=== PATIENT | male | born 1975 | race Caucasian/White ===

== ENCOUNTER 2021-03-06 18:47 | Inpatient (IN) | payer MEDICAID, OTHER, SELFPAY ==
[2021-03-06 19:42] VITALS: BP 141/108; PULSE 116; RESP 18; TEMP 36.9; O2SAT 97
[2021-03-06 20:37] VITALS: BMI 32.9
[2021-03-06] MEDS: Omeprazole 20 MG CAPSULE.DR PO (21:16)
[2021-03-06] MEDS: hydrOXYzine HCL 25 MG TABLET PO (22:29)
[2021-03-06] MEDS: Melatonin 3 MG TABLET PO ×2 (22:29)
[2021-03-07] MEDS: traZODone HCL 50 MG TABLET PO (03:48)
[2021-03-07] MEDS: hydrOXYzine HCL 25 MG TABLET PO (03:48)
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
[2021-03-07 06:00] VITALS: BP 138/84; PULSE 94; RESP 20; TEMP 36.3; O2SAT 98
[2021-03-07] MEDS: Omeprazole 20 MG CAPSULE.DR PO (09:11)
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
[2021-03-07 18:00] VITALS: BP 120/65; PULSE 80
[2021-03-07] MEDS: diphenhydrAMINE HCL 25 MG TABLET 50 MG PO (19:28)
[2021-03-08] MEDS: diphenhydrAMINE HCL 25 MG TABLET 50 MG PO ×2 (00:37→20:47)
[2021-03-08] MEDS: traZODone HCL 50 MG TABLET PO ×3 (01:32→20:47)
[2021-03-08] MEDS: Acetaminophen 325 MG TABLET 650 MG PO (02:05)
[2021-03-08] MEDS: Melatonin 3 MG TABLET 6 MG PO ×2 (02:05→22:17)
[2021-03-08 06:00] VITALS: BP 141/93; PULSE 104; RESP 20; TEMP 36.4; O2SAT 98
[2021-03-08] MEDS: Omeprazole 20 MG CAPSULE.DR PO (08:26)
[2021-03-08 18:00] VITALS: BP 159/89; PULSE 104; RESP 22; TEMP 36.6; O2SAT 98
--- NOTE | 2021-03-08 20:24 | P.PNPSI_ITS ---
Subjective Subjective Date of Service: 03/08/21 Reason For Visit: Unspecified Schizophrenia Subjective Notes: 3 Day Medical Problems Affecting Mental Status: No Interim History: Mikel was pressured, intrusive and bizarre. He refused to take any medications. He could be re-directed by staff Medication Compliance: No Attending Groups: No Review of Systems Acute medical concerns: No Medical Review of Systems: unchanged Mental Status Exam Mental Status Exam Narrative: Pt is alert and oriented to person place and time but not situation. Behavior is guarded and suspicious but can also be somewhat cooperative and he is looking to engage; patient is appropriately dressed with adequate hygiene; patient is in emotional distress sometimes intensely angry, sometimes crying at his situation; mood is described as angry and irritable;and affect intense, angry, with intermittently glaring eye contact; Speech is pressured and he is difficult to interrupt, talking at louder than normal volume; psychomotor agitation present and patient is pacing the room while talking; thought process can goal directed but is overall disorganized, with mixing of unrelated ideas and saying things that don't make sense; Thought content is with paranoid, delusional thoughts with some grandiosity; denies any SI/HI. There is no evidence of perceptual disturbance. ?Patients insight and judgment impaired. Diagnostics Vital Signs (24Hr): Vital Signs - 24 hr 03/08/21 06:00 03/08/21 18:00 Temperature 97.5 F 98 F Pulse Rate 104 H 104 H Respiratory Rate 20 22 H Blood Pressure 141/93 H 159/89 H Pulse Oximetry 98 98 Body Mass Index 32.9 Medications Medications Current Medications Acetaminophen (Acetaminophen 325 Mg Tablet) 650 mg PO Q6H PRN PRN Reason: Headache/Pain Mild Scale (1-3) Last Admin: 03/08/21 02:05 Dose: 650 mg Documented by: Al Hydroxide/Mg Hydroxide (Magnesium Hydrox/Alum Hydrox 30 Ml Oral.Susp) 30 ml PO Q6H PRN PRN Reason: Heartburn/Nausea Diphenhydramine HCl (Diphenhydramine Hcl 25 Mg Tablet) 50 mg PO BEDTIME LAZARO Last Admin: 03/08/21 00:37 Dose: 50 mg Documented by: Diphenhydramine HCl (Diphenhydramine Hcl 25 Mg Tablet) 50 mg PO Q4H PRN PRN Reason: agitation Last Admin: 03/07/21 19:28 Dose: 50 mg Documented by: Divalproex Sodium (Divalproex Sodium Er 250 Mg Tab.Er.24h) 750 mg PO BEDTIME [facility] Last Admin: 03/07/21 19:20 Dose: Not Given Documented by: Haloperidol (Haloperidol 5 Mg Tablet) 5 mg PO Q4H PRN PRN Reason: agitation Lorazepam (Lorazepam 1 Mg Tablet) 2 mg PO Q4H PRN PRN Reason: agitation Magnesium Hydroxide (Milk Of Magnesia 30 Ml Oral.Susp) 30 ml PO DAILY PRN PRN Reason: Constipation Melatonin (Melatonin 3 Mg Tablet) 6 mg PO BEDTIME PRN PRN Reason: Sleep Last Admin: 03/08/21 02:05 Dose: 6 mg Documented by: Omeprazole (Omeprazole 20 Mg Capsule.Dr) 20 mg PO DAILY MRX1 [facility] Last Admin: 03/08/21 12:22 Dose: Not Given Documented by: Trazodone HCl (Trazodone Hcl 50 Mg Tablet) 50 mg PO BEDTIME PRN PRN Reason: Insomnia Last Admin: 03/08/21 03:05 Dose: 50 mg Documented by: Allergies Allergies Allergy/AdvReac Type Severity Reaction Status Date / Time No Known Allergies Allergy Verified 03/06/21 20:38 Assessment & Plan Assessment & Plan (1) Bipolar 1 disorder: Status: Acute Code(s): F31.9 - Bipolar disorder, unspecified Assessment and Plan: IMPRESSION: It is a he 45-year-old male with diagnosis of bipolar disorder, recently discharged from [facility] (following 20 days on a another inpatient unit in [place], possibly forensic) presents with continued manic, paranoid, disorganized speech and behavior. Patient presents as manic and with pressured speech, disorganized, paranoid thinking and with some grandiosity. Patient has no insight and does not want medications. He is insisting on being discharged and will Renetta the hospital staff otherwise. Patient is frequently intents and presents as angry and somewhat menacing when he starts talking. pLAN: Patient signed a CV; then signed 3 day notice Q 15 minutes checks for safety Patient asks for melatonin 6 mg and Benadryl 50 mg at bedtime which has been ordered Patient refuses other medication Historical Interpreter added Depakote XL 750 mg at bedtime since patient says he is having trouble sleeping and may change his mind about medications Will have to get collateral information Patient refused labs 03/08/21: No changes Encourage medication compliance I spent ___10___ minutes with the patient and/or on the patient floor today, greater than?50% of which was spent counseling/coordinating care. Patient educated on: diagnosis Informed Consent: does not understand Reason for contiued inpatient stay Substantial Risk for: rapid decompensation
[2021-03-08] MEDS: HaloperidoL 5 MG TABLET PO (22:17)
[2021-03-09] MEDS: traZODone HCL 50 MG TABLET PO (03:46)
[2021-03-09] MEDS: Melatonin 3 MG TABLET 6 MG PO ×2 (03:46→20:08)
[2021-03-09] MEDS: Milk of Magnesia 30 ML ORAL.SUSP PO (04:40)
[2021-03-09 06:00] VITALS: BP 144/87; PULSE 97; RESP 16; TEMP 36.4; O2SAT 97
[2021-03-09] MEDS: Omeprazole 20 MG CAPSULE.DR PO (08:38)
[2021-03-09 17:00] VITALS: BP 136/97; PULSE 96; RESP 18; TEMP 36.6; O2SAT 98
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
[2021-03-09] MEDS: diphenhydrAMINE HCL 25 MG TABLET 50 MG PO (21:17)
[2021-03-10] MEDS: Melatonin 3 MG TABLET 6 MG PO ×2 (01:00→22:21)
[2021-03-10] MEDS: traZODone HCL 50 MG TABLET PO (03:51)
[2021-03-10 06:28] VITALS: BP 139/87; PULSE 101; TEMP 36.4; O2SAT 98
[2021-03-10] MEDS: Omeprazole 20 MG CAPSULE.DR PO (08:01)
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
[2021-03-10 18:00] VITALS: BP 153/95; PULSE 106; TEMP 36.6; O2SAT 98
[2021-03-10] MEDS: diphenhydrAMINE HCL 25 MG TABLET 50 MG PO (22:15)
[2021-03-11] MEDS: Acetaminophen 325 MG TABLET 650 MG PO (00:45)
[2021-03-11] MEDS: HaloperidoL 5 MG TABLET PO (01:07)
[2021-03-11] MEDS: LORazepam 1 MG TABLET 2 MG PO (01:08)
[2021-03-11 06:00] VITALS: BP 170/94; PULSE 111; RESP 18; TEMP 36; O2SAT 98
[2021-03-11] MEDS: Omeprazole 20 MG CAPSULE.DR PO (08:36)
[2021-03-11 09:02] VITALS: BP 147/85; PULSE 99
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
[2021-03-11 16:45] VITALS: BP 143/90; PULSE 101; TEMP 36.5
[2021-03-11] MEDS: Valproic Acid 250 MG CAPSULE 500 MG PO (20:26)
[2021-03-11] MEDS: Melatonin 3 MG TABLET 6 MG PO (22:43)
[2021-03-12] MEDS: diphenhydrAMINE HCL 25 MG TABLET 50 MG PO (04:33)
[2021-03-12 06:00] VITALS: BP 130/82; PULSE 84; TEMP 36.3; O2SAT 99
[2021-03-12] MEDS: Omeprazole 20 MG CAPSULE.DR PO (09:05)
--- NOTE | 2021-03-12 10:15 | P.CONIM_ITS ---
History of Present Illness Data of Consult Service Date: 03/12/21 Primary Care Provider: Quang Fuentes MD HPI Reason for consult: Routine Medical Consult This is a 45 yo M who is admitted to the inpatient psych unit. Medical consult requested for routine medical H&P. Patient is seen and examined in his room. He requires frequent redirection to obtain history. He reports no chronic health problems. He reports he used to drink 8-10 beers daily, but has not for >6 months He reports he used to smoke 1 PPD but stopped in 2005 He reports he vapes marijuana occasionally. He reports he has a history of acid reflux PMH GERD PSH Appendectomy EGD Mental health in his brother reports his father has health problems, but then states He's just old Social History Previous smoker Heavy Etoh use -- stopped 6 months ago Vapes marijuana Review of Systems Review of Systems: no chest pain no sob no abd pain PMFSH Medical History (Updated 03/12/21 @ 10:32 by Hussain Meehan MD) Bipolar 1 disorder Pertinent family history: . Social History Household Members: Spouse and Children Housing: House Do you presently have visiting nurse or other home services: No Patient Tobacco Use Status: Former Tobacco user Tobacco use type: Cigarette Smoked in Last 30 Days: No Patient Interested in Nicotine Replacement: No Patient Given Instructions on How to Stop Smoking: No Second Hand Smoke Exposure: No Use of substances other than those prescribed or required for medical reasons: Yes Substance Use Type: Marijuana Substance Use Frequency: Daily Currently Displaying Signs/Symptoms of Drug Intoxication Withdrawal: No Any prior treatment program specific to substance use: No Have you been hit, kicked, punched, or otherwise hurt by someone within the past year? If so, by whom?: No Do you feel safe in your current relationship?: No Is there a partner from a previous relationship who is making you feel unsafe now?: No Are you made to feel afraid or neglected: No Advance Directives: No Advance Directives Information Provided: No Advance Directives on File: No Do you have thoughts of harming others: None Do you have a plan to hurt others: No Plan Recently lost weight without trying: No Eating poorly because of decreased appetite: No Nutrition Risks: No Nutritional Risk Poor oral hygiene: No service: No Sexual orientation: Straight/Heterosexual Meds Allergies Allergy/AdvReac Type Severity Reaction Status Date / Time No Known Allergies Allergy Verified 03/06/21 20:38 Active Medications: Current Medications Acetaminophen (Acetaminophen 325 Mg Tablet) 650 mg PO Q6H PRN PRN Reason: Headache/Pain Mild Scale (1-3) Last Admin: 03/11/21 00:45 Dose: 650 mg Documented by: Al Hydroxide/Mg Hydroxide (Magnesium Hydrox/Alum Hydrox 30 Ml Oral.Susp) 30 ml PO Q6H PRN PRN Reason: Heartburn/Nausea Diphenhydramine HCl (Diphenhydramine Hcl 25 Mg Tablet) 50 mg PO BEDTIME [facility] Last Admin: 03/12/21 04:33 Dose: 50 mg Documented by: Diphenhydramine HCl (Diphenhydramine Hcl 25 Mg Tablet) 50 mg PO Q4H PRN PRN Reason: agitation Last Admin: 03/07/21 19:28 Dose: 50 mg Documented by: Haloperidol (Haloperidol 5 Mg Tablet) 5 mg PO Q4H PRN PRN Reason: agitation Last Admin: 03/11/21 01:07 Dose: 5 mg Documented by: Lorazepam (Lorazepam 1 Mg Tablet) 2 mg PO Q4H PRN PRN Reason: agitation Last Admin: 03/11/21 01:08 Dose: 2 mg Documented by: Magnesium Hydroxide (Milk Of Magnesia 30 Ml Oral.Susp) 30 ml PO DAILY PRN PRN Reason: Constipation Last Admin: 03/09/21 04:40 Dose: 30 ml Documented by: Melatonin (Melatonin 3 Mg Tablet) 6 mg PO BEDTIME PRN PRN Reason: Sleep Last Admin: 03/11/21 22:43 Dose: 6 mg Documented by: Omeprazole (Omeprazole 20 Mg Capsule.) 20 mg PO DAILY MRX1 [facility] Last Admin: 03/12/21 09:05 Dose: 20 mg Documented by: Trazodone HCl (Trazodone Hcl 50 Mg Tablet) 50 mg PO BEDTIME PRN PRN Reason: Insomnia Last Admin: 03/10/21 03:51 Dose: 50 mg Documented by: Valproic Acid (Valproic Acid 250 Mg Capsule) 500 mg PO BEDTIME [facility] Last Admin: 03/11/21 20:26 Dose: 500 mg Documented by: Home Medications Medication Instructions Recorded Confirmed Last Taken Type lamotrigine 25 mg tablet 25 mg PO DAILY 03/06/21 03/06/21 Unknown History melatonin 5 mg tablet 5 mg PO BEDTIME 03/06/21 03/06/21 Unknown History olanzapine 15 mg tablet 15 mg PO BEDTIME 03/06/21 03/06/21 Unknown History omeprazole 20 mg tablet,delayed 20 mg PO DAILY 03/06/21 03/06/21 Unknown History release Physical Exam Vital Signs and Narrative: Vital Signs: Last Vital Signs Temp 97.3 F 03/12/21 06:00 Pulse 84 03/12/21 06:00 Resp 18 03/11/21 06:00 BP 130/82 03/12/21 06:00 Pulse Ox 99 03/12/21 06:00 Body Mass Index 32.9 Const: Other: General - no acute distress, appears comfortable Cardiovascular - regular rate and rhythm, S1-S2 Lungs - normal respiratory effort, clear to auscultation bilaterally, no wheezing Abdomen - soft, nontender, no rebound or guarding Extremities - no edema bilaterally Neuro - awake and alert, no focal deficits; CN 2-12 intact bilaterally Assessment and Plan (1) Routine medical exam: Status: Acute Medical consultation sought for routine medical H&P. Patient has no active nor any major chronic medical issues. Patient has been counseled on age appropriate health maintenance as an outpatient. Continue care per primary team. Please re-consult if any issues arise.
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
[2021-03-12 19:23] VITALS: BP 137/91; PULSE 114; RESP 22; TEMP 36; O2SAT 98
[2021-03-12] MEDS: Divalproex Sodium ER 250 MG TAB.ER.24H 750 MG PO (20:39)
[2021-03-12] MEDS: Melatonin 3 MG TABLET 6 MG PO (21:10)
[2021-03-12] MEDS: Acetaminophen 325 MG TABLET 650 MG PO (23:37)
[2021-03-13] MEDS: HaloperidoL 5 MG TABLET PO (03:03)
[2021-03-13] MEDS: diphenhydrAMINE HCL 25 MG TABLET 50 MG PO ×2 (03:03→20:48)
[2021-03-13 06:00] VITALS: BP 164/94; PULSE 107; TEMP 36.6; O2SAT 99
[2021-03-13] MEDS: Omeprazole 20 MG CAPSULE.DR PO (07:46)
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
[2021-03-13 15:58] LABS: Appearance Urine CLEAR; Color Urine STRAW; Glucose Urine UA NEG (NEG); Leukocyte Esterase Urine NEG (NEG); Nitrite Urine NEG (NEG); Specific Gravity - Urine <= 1.005 (1.005-1.025); Urine Blood NEG (NEG); Urine Ketones NEG (NEG); Urine Protein NEG (NEG-TRACE)
[2021-03-13 16:08] LABS: RBC Urine 0 /HPF (0); WBC Urine 0 /HPF (0-4)
[2021-03-13 17:59] LABS: Alanine Aminotransferase 38 U/L (0-40); Albumin Level 4.4 g/dL (3.5-5.0); Alkaline Phosphatase 85 U/L (39-117); Anion Gap 12 (12-20); Aspartate Amino Transferase 27 U/L (5-37); Bilirubin Direct 0.2 mg/dL (0.0-0.5); Bilirubin Total 0.3 mg/dL (0.0-1.0); Blood Urea Nitrogen 11 mg/dL (9-16); Carbon Dioxide 29 mmol/L (22-29); Chloride 102 mmol/L (96-108); Creatinine Clr Calc Pharmacy 127.1; Estimated Glomerular Filt Rate > 60; Sodium 139 mmol/L (135-145); Total Protein 7.2 g/dL (6.5-8.0)
[2021-03-13 18:00] VITALS: BP 136/91; PULSE 78; TEMP 36.9
[2021-03-13] MEDS: Divalproex Sodium ER 500 MG TAB.ER.24H 1500 MG PO (19:06)
[2021-03-14] MEDS: Melatonin 3 MG TABLET 6 MG PO (00:32)
[2021-03-14] MEDS: diphenhydrAMINE HCL 25 MG TABLET 50 MG PO (00:32)
[2021-03-14 04:55] VITALS: BP 183/99; PULSE 89; TEMP 36.1; O2SAT 100
[2021-03-14] MEDS: Omeprazole 20 MG CAPSULE.DR PO (08:48)
[2021-03-14] MEDS: LORazepam 2 MG/ML VIAL IM (12:43)
[2021-03-14] MEDS: Haloperidol Lactate 5 MG/ML VIAL 10 MG IM (12:43)
[2021-03-14] MEDS: diphenhydrAMINE HCL 50 MG/ML VIAL 100 MG IM (12:43)
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
--- NOTE | 2021-03-14 12:52 | HO.PSYCHPN ---
Subjective Subjective Date of Service: 03/14/21 Reason For Visit: Unspecified Schizophrenia Interim History: Patient showed fiction and nonfiction prose writer his bathroom where another miracle occurred this time the toilet paper dispenser had been pulled off the wall. Patient later showed fiction and nonfiction prose writer where he hid the plastic locking device for the dispenser-screw which was underneath his toilet which he gave to fiction and nonfiction prose writer. Patient then demanded to be discharged today. He repeatedly told fiction and nonfiction prose writer with escalating intensity, menacing affect, loud voice that he is becoming Wrath and becoming the anti Hollis. He said you are making me Wrath... You are making me the anti Hollis... You want me to be Wrath and when you I will see you in the after life... You will be sent to me in a furnace... LEVITICUS...LEVITICUS...LEVITICUS... Patient made other consulting and threatening comments, calling Water Purification Chemist various names. Later patient started trying to kick the door down to exit the unit. He was not able to be verbally redirected and security had to be called, patient needing medication restraint. Mental Status Exam Mental Status Exam Narrative: Pt is alert and oriented to person place and time but not situation.? Behavior is somewhat angry, intense;? patient is appropriately dressed with adequate hygiene; patient is in emotional distress; mood is described as angry and affect intense; glaring eye contact; Speech is pressured and he is difficult to interrupt, talking at louder than normal volume;? psychomotor agitation present; thought process is goal oriented (wanting to be discharged today) but is also tangential and disorganized; Thought content on discharge and paranoid, delusional thinking, mixed of unrelated ideas and saying things that don't make sense; grandiose thoughts; denies any SI/HI. There is no evidence of perceptual disturbance. ?Patients insight and judgment impaired. Diagnostics Vital Signs (24Hr): Vital Signs - 24 hr 03/13/21 18:00 03/14/21 04:55 Temperature 98.4 F 97.0 F Pulse Rate 78 89 Blood Pressure 136/91 H 183/99 H Pulse Oximetry 100 Body Mass Index 32.9 Labs Results: 03/13/21 17:24 Labs: Laboratory Results - last 48 hr 03/13/21 03/13/21 15:43 17:24 Sodium 139 Potassium 4.0 Chloride 102 Carbon Dioxide 29 Anion Gap 12 BUN 11 Creatinine 0.79 Estim Creat Clear Calc 127.1 Estimated GFR > 60 Total Bilirubin 0.3 Direct Bilirubin 0.2 AST 27 ALT 38 Alkaline Phosphatase 85 Total Protein 7.2 Albumin 4.4 Urine Color STRAW Urine Appearance CLEAR Urine pH 7.0 Ur Specific Donner <= 1.005 Urine Protein NEG Urine Glucose (UA) NEG Urine Ketones NEG Urine Blood NEG Urine Nitrite NEG Ur Leukocyte Esterase NEG Urine RBC 0 Urine WBC 0 Ur Squamous Epith Cells NONE Urine Bacteria NONE Medications Medications Current Medications Acetaminophen (Acetaminophen 325 Mg Tablet) 650 mg PO Q6H PRN PRN Reason: Headache/Pain Mild Scale (1-3) Last Admin: 03/12/21 23:37 Dose: 650 mg Documented by: Al Hydroxide/Mg Hydroxide (Magnesium Hydrox/Alum Hydrox 30 Ml Oral.Susp) 30 ml PO Q6H PRN PRN Reason: Heartburn/Nausea Diphenhydramine HCl (Diphenhydramine Hcl 25 Mg Tablet) 50 mg PO BEDTIME LAZARO Last Admin: 03/14/21 00:32 Dose: 50 mg Documented by: Diphenhydramine HCl (Diphenhydramine Hcl 25 Mg Tablet) 50 mg PO Q4H PRN PRN Reason: agitation Last Admin: 03/13/21 03:03 Dose: 50 mg Documented by: Diphenhydramine HCl (Diphenhydramine Hcl 25 Mg Tablet) 25 mg PO BEDTIME MRX1 PRN PRN Reason: Insomnia Divalproex Sodium (Divalproex Sodium Er 500 Mg Tab.Er.24h) 1,500 mg PO BEDTIME LAZARO Last Admin: 03/13/21 19:06 Dose: 1,500 mg Documented by: Divalproex Sodium (Divalproex Sodium Er 250 Mg Tab.Er.24h) 250 mg PO DAILY LAZARO Last Admin: 03/14/21 08:50 Dose: Not Given Documented by: Haloperidol (Haloperidol 5 Mg Tablet) 5 mg PO Q4H PRN PRN Reason: agitation Last Admin: 03/13/21 03:03 Dose: 5 mg Documented by: Magnesium Hydroxide (Milk Of Magnesia 30 Ml Oral.Susp) 30 ml PO DAILY PRN PRN Reason: Constipation Last Admin: 03/09/21 04:40 Dose: 30 ml Documented by: Melatonin (Melatonin 3 Mg Tablet) 6 mg PO BEDTIME PRN PRN Reason: Sleep Last Admin: 03/14/21 00:32 Dose: 6 mg Documented by: Omeprazole (Omeprazole 20 Mg Norbert.) 20 mg PO DAILY MRX1 LAZARO Last Admin: 03/14/21 08:56 Dose: Not Given Documented by: Trazodone HCl (Trazodone Hcl 50 Mg Tablet) 50 mg PO BEDTIME PRN PRN Reason: Insomnia Last Admin: 03/10/21 03:51 Dose: 50 mg Documented by: Allergies Allergies Allergy/AdvReac Type Severity Reaction Status Date / Time No Known Allergies Allergy Verified 03/06/21 20:38 Assessment & Plan Assessment & Plan (1) Routine medical exam: Status: Acute Code(s): Z00.00 - Encounter for general adult medical examination without abnormal findings Assessment and Plan: IMPRESSION: It is a he 45-year-old male with diagnosis of bipolar disorder, recently discharged from [facility] (following 20 days on a another inpatient unit in [place], possibly forensic) presents with? continued manic, paranoid, disorganized speech and behavior.? Patient presents as manic and with pressured speech, disorganized, paranoid thinking and with some grandiosity. Patient has no insight and does not want medications.? He is insisting on being discharged and will Renetta the hospital staff otherwise. Patient is frequently intents and presents as angry and somewhat menacing when he starts talking. -patient remains manic, not sleeping, with pressured speech and paranoid delusional thoughts; patient lacks all insight -03/13patient pulled the mirror off the wall in his bathroom and later ripped the soap dispenser off the wall in his bathroom.? Both times he said it was a miracle that they just fell off. Continues to have present with manic symptoms, pressured speech, paranoid delusions, disorganized thinking, no insight demanding to be discharged today.? Patient can become intense, glaring and making vague threats sometimes litigious threats but other times ones that sound physical, though he later recants -03/14 patient angry, with menacing stare, posturing, threatening biblical destruction, insulting staff and threatening staff... Patient destroyed bathroom toilet paper dispenser by breaking off the wall. Later he tried to kick the exit door to the unit open, could not be verbally redirected and security needed to be called, patient medically restrained pLAN: [address] for involuntary commitment and substituted judgment Q 15 minutes checks for safety INCREASE to Depakote XL 1500mg qhs ADD Depakote XL 250mg in AM; Patient asks for melatonin 6 mg and Benadryl 50 mg at bedtime which has been ordered Patient refuses other medication Will have to get collateral information Patient refused labs I spent minutes with the patient and/or on the patient floor today, greater than?50% of which was spent counseling/coordinating care. Reason for contiued inpatient stay Substantial Risk for: inability to function
--- NOTE | 2021-03-14 12:59 | PC.NURSE ---
PT HAS BEEN AGITATED, ESCALATING, STATING THAT HE WAS GOING TO BREAK THROUGH THE DOOR BY THE END OF THE DAY . PT CONTINUED TO GO BACK TO THE DOOR MULTIPLE TIMES. HE BEGAN PULLING ON THE DOOR. PT THEN WENT TO THE DOOR AND BEGAN AGGRESSIVELY KICKING THE DOOR TO TRY TO OPEN IT. PT WAS SWEARING AT THE STAFF THREATENING THAT THEY BETTER LET HIM OUT OF THE HOSPITAL. PT RECEIVED AN IM AT 1240 WITHT HE ASSISTANCE OF SECURITY. PT TOOK THE IM WITHOUT FIGHTING STAFF.
--- NOTE | 2021-03-14 14:51 | PC.NURSE ---
RESPIRATIONS CHECKED AT 1445. RESPIRATIONS 16 PER MINUTE. HEAD IS ELEVATED ON BED WITH PILLOWS.
--- NOTE | 2021-03-14 15:30 | PC.NURSE ---
respirations rechecked due to im injection at 1530. resp 18 per minute. patients breathing is even and appears nonlabored.
[2021-03-14 18:00] VITALS: BP 160/92; PULSE 119; TEMP 36.6
[2021-03-15] MEDS: Melatonin 3 MG TABLET 6 MG PO (02:22)
[2021-03-15] MEDS: Omeprazole 20 MG CAPSULE.DR PO (09:05)
--- NOTE | 2021-03-15 09:36 | P.PNPSI_ITS ---
Subjective Subjective Date of Service: 03/15/21 Reason For Visit: Unspecified Schizophrenia Interim History: 03/14:Patient showed engineering writer his bathroom where a miracle occurred and the toilet paper dispenser had been ripped off the wall. Patient later showed engineering writer where he hid the plastic locking device for the screw underneath his toilet which he surrendered. Patient then demanded to be discharged today. He told engineering writer that he is becoming Wrath and becoming the anti Hollis. He said you are making me Wrath... You are making me the anti Hollis... You want me to be Wrath and when you I will see you in the after life... You will be sent to me in a furnace... LEVITICUS. ..LEVITICUS...LEVITICUS... Patient made other consulting and threatening comments, calling Neurodiagnostic Technician various names. Later patient started trying to kick the door down to exit the unit. He was not able to be verbally redirected and security had to be called, patient needing medication restraint. 03/15: Remains elevated, labile. Various criticisms towards Dr Juarez, Denies he ripped off toliet fixtures they just fell off...infrastructure is crumbling . Demanding DC soon. will visit today so i will take my meds . Review of Systems Review of Systems no chest pain no sob no abd pain Mental Status Exam Mental Status Exam Narrative: :?Pt is alert and oriented to person place and time but not situation.? Behavior is somewhat irritable, perseverating paranoid, delusional ideas;? patient is appropriately dressed with adequate hygiene; patient is in emotional distress sometimes intensely angry, sometimes crying at his situation; mood is described as angry and irritable;and affect intense, angry, with intermittently glaring eye contact; Speech is pressured and he is difficult to interrupt, talking at louder than normal volume;? psychomotor agitation present at times, and patient is pacing the room while talking; thought process can goal (wanting to be discharged today) directed but is overall disorganized, with mixing of unrelated ideas and saying things that don't make sense; Thought content is with paranoid, delusional thoughts with some grandiosity; denies any SI/HI. There is no evidence of perceptual disturbance. ?Patients insight and judgment impaired. Diagnostics Vital Signs (24Hr): Vital Signs - 24 hr 03/14/21 18:00 Temperature 98 F Pulse Rate 119 H Blood Pressure 160/92 H Body Mass Index 32.9 Labs Results: 03/13/21 17:24 Labs: Laboratory Results - last 48 hr 03/13/21 03/13/21 15:43 17:24 Sodium 139 Potassium 4.0 Chloride 102 Carbon Dioxide 29 Anion Gap 12 BUN 11 Creatinine 0.79 Estim Creat Clear Calc 127.1 Estimated GFR > 60 Total Bilirubin 0.3 Direct Bilirubin 0.2 AST 27 ALT 38 Alkaline Phosphatase 85 Total Protein 7.2 Albumin 4.4 Urine Color STRAW Urine Appearance CLEAR Urine pH 7.0 Ur Specific [place] <= 1.005 Urine Protein NEG Urine Glucose (UA) NEG Urine Ketones NEG Urine Blood NEG Urine Nitrite NEG Ur Leukocyte Esterase NEG Urine RBC 0 Urine WBC 0 Ur Squamous Epith Cells NONE Urine Bacteria NONE Medications Medications Current Medications Acetaminophen (Acetaminophen 325 Mg Tablet) 650 mg PO Q6H PRN PRN Reason: Headache/Pain Mild Scale (1-3) Last Admin: 03/12/21 23:37 Dose: 650 mg Documented by: Al Hydroxide/Mg Hydroxide (Magnesium Hydrox/Alum Hydrox 30 Ml Oral.Susp) 30 ml PO Q6H PRN PRN Reason: Heartburn/Nausea Diphenhydramine HCl (Diphenhydramine Hcl 25 Mg Tablet) 50 mg PO BEDTIME LAZARO Last Admin: 03/14/21 00:32 Dose: 50 mg Documented by: Diphenhydramine HCl (Diphenhydramine Hcl 25 Mg Tablet) 50 mg PO Q4H PRN PRN Reason: agitation Last Admin: 03/13/21 03:03 Dose: 50 mg Documented by: Diphenhydramine HCl (Diphenhydramine Hcl 25 Mg Tablet) 25 mg PO BEDTIME MRX1 PRN PRN Reason: Insomnia Divalproex Sodium (Divalproex Sodium Er 500 Mg Tab.Er.24h) 1,500 mg PO BEDTIME LAZARO Last Admin: 03/14/21 20:12 Dose: Not Given Documented by: Divalproex Sodium (Divalproex Sodium Er 250 Mg Tab.Er.24h) 250 mg PO DAILY LAZARO Last Admin: 03/15/21 09:06 Dose: Not Given Documented by: Haloperidol (Haloperidol 5 Mg Tablet) 5 mg PO Q4H PRN PRN Reason: agitation Last Admin: 03/13/21 03:03 Dose: 5 mg Documented by: Magnesium Hydroxide (Milk Of Magnesia 30 Ml Oral.Susp) 30 ml PO DAILY PRN PRN Reason: Constipation Last Admin: 03/09/21 04:40 Dose: 30 ml Documented by: Melatonin (Melatonin 3 Mg Tablet) 6 mg PO BEDTIME PRN PRN Reason: Sleep Last Admin: 03/15/21 02:22 Dose: 6 mg Documented by: Omeprazole (Omeprazole 20 Mg Capsule.Dr) 20 mg PO DAILY MRX1 LAZARO Last Admin: 03/15/21 09:14 Dose: Not Given Documented by: Trazodone HCl (Trazodone Hcl 50 Mg Tablet) 50 mg PO BEDTIME PRN PRN Reason: Insomnia Last Admin: 03/10/21 03:51 Dose: 50 mg Documented by: Allergies Allergies Allergy/AdvReac Type Severity Reaction Status Date / Time No Known Allergies Allergy Verified 03/06/21 20:38 Assessment & Plan Assessment & Plan (1) Routine medical exam: Status: Acute Code(s): Z00.00 - Encounter for general adult medical examination without abnormal findings Assessment and Plan: IMPRESSION: It is a he 45-year-old male with diagnosis of bipolar disorder, recently discharged from [facility] (following 20 days on a another inpatient unit in [place], possibly forensic) presents with? continued manic, paranoid, disorganized speech and behavior.? Patient presents as manic and with pressured speech, disorganized, paranoid thinking and with some grandiosity. Patient has no insight and does not want medications.? He is insisting on being discharged and will Renetta the hospital staff otherwise. Patient is frequently intents and presents as angry and somewhat menacing when he starts talking. -patient remains manic, not sleeping, with pressured speech and paranoid delusional thoughts; patient lacks all insight -03/13patient ripped the mirror off the wall in his bathroom and later ripped t he soap dispenser off the wall in his bathroom. Both times he said it was a miracle that they just fell off. -03/14 patient angry, with menacing stare, posturing, threatening biblical destruction, insulting staff and threatening staff... Patient destroyed bathroom toilet paper dispenser by breaking off the wall. Later he tried to kick the exit door to the unit open, could not be verbally redirected and security needed to be called, patient medically restrained pLAN: Patient signed a CV; then signed [address] for involuntary commitment and substituted judgment Q 15 minutes checks for safety INCREASE to Depakote XL 750mg; pt said willing to take Patient asks for melatonin 6 mg and Benadryl 50 mg at bedtime which has been ordered Patient refuses other medication Will have to get collateral information Patient refused labs 03/15: Ct plan. Reassured. No med changes. Encouraged to take meds and less intrusiveness. I spent minutes with the patient and/or on the patient floor today, greater than?50% of which was spent counseling/coordinating care. Reason for contiued inpatient stay Substantial Risk for: rapid decompensation
[2021-03-15] MEDS: Divalproex Sodium ER 250 MG TAB.ER.24H PO (10:04)
[2021-03-15] MEDS: Acetaminophen 325 MG TABLET 650 MG PO (16:58)
[2021-03-15] MEDS: Divalproex Sodium ER 500 MG TAB.ER.24H 1500 MG PO (20:19)
[2021-03-15] MEDS: diphenhydrAMINE HCL 25 MG TABLET 50 MG PO (20:19)
[2021-03-15] MEDS: Magnesium Hydrox/Alum Hydrox 30 ML ORAL.SUSP PO (21:10)
[2021-03-15 21:35] VITALS: BP 153/79; PULSE 92; TEMP 36.6
[2021-03-16] MEDS: traZODone HCL 50 MG TABLET PO (00:07)
[2021-03-16 06:00] VITALS: BP 142/89; PULSE 102; TEMP 36.4; O2SAT 97
[2021-03-16] MEDS: Divalproex Sodium ER 250 MG TAB.ER.24H PO (08:38)
[2021-03-16] MEDS: Omeprazole 20 MG CAPSULE.DR PO (08:38)
--- NOTE | 2021-03-16 08:40 | HO.PSYCHPN ---
Subjective Subjective Date of Service: 03/16/21 Reason For Visit: Unspecified Schizophrenia Interim History: 03/14:Patient showed auto service writer his bathroom where a miracle occurred and the toilet paper dispenser had been ripped off the wall. Patient later showed auto service writer where he hid the plastic locking device for the screw underneath his toilet which he surrendered. Patient then demanded to be discharged today. He told auto service writer that he is becoming Wrath and becoming the anti Hollis. He said you are making me Wrath... You are making me the anti Hollis... You want me to be Wrath and when you I will see you in the after life... You will be sent to me in a furnace... LEVITICUS...LEVITICUS...LEVITICUS... Patient made other consulting and threatening comments, calling Transition Mgr various names. Later patient started trying to kick the door down to exit the unit. He was not able to be verbally redirected and security had to be called, patient needing medication restraint. 03/15: Remains elevated, labile. Various criticisms towards Dr Juarez, Denies he ripped off toliet fixtures they just fell off...infrastructure is crumbling . Demanding DC soon. will visit today so i will take my meds . 03/16: Less labile/loud and flushed. POS is better. Spoke to on phone then took meds. Token demand to leave. Asked to switch to melatonin + benadryl . LAVERN Quiroz Review of Systems Review of Systems no chest pain no sob no abd pain Mental Status Exam Mental Status Exam Narrative: :?Pt is alert and oriented to person place and time but not situation.? Behavior is somewhat irritable, perseverating paranoid, delusional ideas;? patient is appropriately dressed with adequate hygiene; patient is in emotional distress sometimes intensely angry, sometimes crying at his situation; mood is described as angry and irritable;and affect intense, angry, with intermittently glaring eye contact; Speech is pressured and he is difficult to interrupt, talking at louder than normal volume;? psychomotor agitation present at times, and patient is pacing the room while talking; thought process can goal (wanting to be discharged today) directed but is overall disorganized, with mixing of unrelated ideas and saying things that don't make sense; Thought content is with paranoid, delusional thoughts with some grandiosity; denies any SI/HI. There is no evidence of perceptual disturbance. ?Patients insight and judgment impaired. Diagnostics Vital Signs (24Hr): Vital Signs - 24 hr 03/15/21 21:35 03/16/21 06:00 Temperature 97.8 F 97.6 F Pulse Rate 92 102 H Blood Pressure 153/79 H 142/89 H Pulse Oximetry 97 Body Mass Index 32.9 Labs Results: 03/13/21 17:24 Medications Medications Current Medications Acetaminophen (Acetaminophen 325 Mg Tablet) 650 mg PO Q6H PRN PRN Reason: Headache/Pain Mild Scale (1-3) Last Admin: 03/15/21 16:58 Dose: 650 mg Documented by: Al Hydroxide/Mg Hydroxide (Magnesium Hydrox/Alum Hydrox 30 Ml Oral.Susp) 30 ml PO Q6H PRN PRN Reason: Heartburn/Nausea Last Admin: 03/15/21 21:10 Dose: 30 ml Documented by: Diphenhydramine HCl (Diphenhydramine Hcl 25 Mg Tablet) 50 mg PO BEDTIME LAZARO Last Admin: 03/15/21 20:19 Dose: 50 mg Documented by: Diphenhydramine HCl (Diphenhydramine Hcl 25 Mg Tablet) 50 mg PO Q4H PRN PRN Reason: agitation Last Admin: 03/13/21 03:03 Dose: 50 mg Documented by: Diphenhydramine HCl (Diphenhydramine Hcl 25 Mg Tablet) 25 mg PO BEDTIME MRX1 PRN PRN Reason: Insomnia Divalproex Sodium (Divalproex Sodium Er 500 Mg Tab.Er.24h) 1,500 mg PO BEDTIME LAZARO Last Admin: 03/15/21 20:19 Dose: 1,500 mg Documented by: Divalproex Sodium (Divalproex Sodium Er 250 Mg Tab.Er.24h) 250 mg PO DAILY LAZARO Last Admin: 03/16/21 08:38 Dose: 250 mg Documented by: Haloperidol (Haloperidol 5 Mg Tablet) 5 mg PO Q4H PRN PRN Reason: agitation Last Admin: 03/13/21 03:03 Dose: 5 mg Documented by: Magnesium Hydroxide (Milk Of Magnesia 30 Ml Oral.Susp) 30 ml PO DAILY PRN PRN Reason: Constipation Last Admin: 03/09/21 04:40 Dose: 30 ml Documented by: Melatonin (Melatonin 3 Mg Tablet) 6 mg PO BEDTIME PRN PRN Reason: Sleep Last Admin: 03/15/21 02:22 Dose: 6 mg Documented by: Omeprazole (Omeprazole 20 Mg Capsule.) 20 mg PO DAILY MRX1 LAZARO Last Admin: 03/16/21 08:38 Dose: 20 mg Documented by: Trazodone HCl (Trazodone Hcl 50 Mg Tablet) 50 mg PO BEDTIME PRN PRN Reason: Insomnia Last Admin: 03/16/21 00:07 Dose: 50 mg Documented by: Allergies Allergies Allergy/AdvReac Type Severity Reaction Status Date / Time No Known Allergies Allergy Verified 03/06/21 20:38 Assessment & Plan Assessment & Plan (1) Routine medical exam: Status: Acute Code(s): Z00.00 - Encounter for general adult medical examination without abnormal findings Assessment and Plan: IMPRESSION: It is a he 45-year-old male with diagnosis of bipolar disorder, recently discharged from [facility] (following 20 days on a another inpatient unit in [place], possibly forensic) presents with? continued manic, paranoid, disorganized speech and behavior.? Patient presents as manic and with pressured speech, disorganized, paranoid thinking and with some grandiosity. Patient has no insight and does not want medications.? He is insisting on being discharged and will Renetta the hospital staff otherwise. Patient is frequently intents and presents as angry and somewhat menacing when he starts talking. -patient remains manic, not sleeping, with pressured speech and paranoid delusional thoughts; patient lacks all insight -03/13patient ripped the mirror off the wall in his bathroom and later ripped the soap dispenser off the wall in his bathroom. Both times he said it was a miracle that they just fell off. -03/14 patient angry, with menacing stare, posturing, threatening biblical destruction, insulting staff and threatening staff... Patient destroyed bathroom toilet paper dispenser by breaking off the wall. Later he tried to kick the exit door to the unit open, could not be verbally redirected and security needed to be called, patient medically restrained pLAN: Patient signed a CV; then signed [address] for involuntary commitment and substituted judgment Q 15 minutes checks for safety INCREASE to Depakote XL 750mg; pt said willing to take Patient asks for melatonin 6 mg and Benadryl 50 mg at bedtime which has been ordered Patient refuses other medication Will have to get collateral information Patient refused labs 03/16: Ct plan. LAVERN Quiroz. Ct Benadryl+ Melatonin I spent minutes with the patient and/or on the patient floor today, greater than?50% of which was spent counseling/coordinating care. Reason for contiued inpatient stay Substantial Risk for: rapid decompensation
[2021-03-16] MEDS: Divalproex Sodium ER 500 MG TAB.ER.24H 1500 MG PO (20:52)
[2021-03-16] MEDS: Melatonin 3 MG TABLET 10 MG PO (20:53)
[2021-03-16] MEDS: diphenhydrAMINE HCL 25 MG TABLET 50 MG PO (20:55)
[2021-03-16 21:50] VITALS: BP 141/77; PULSE 84; TEMP 36.6
[2021-03-16] MEDS: Magnesium Hydrox/Alum Hydrox 30 ML ORAL.SUSP PO (22:57)
[2021-03-17] MEDS: Melatonin 3 MG TABLET 10 MG PO ×2 (01:43→23:48)
[2021-03-17] MEDS: Acetaminophen 325 MG TABLET 650 MG PO (01:44)
[2021-03-17] MEDS: diphenhydrAMINE HCL 25 MG TABLET 50 MG PO (01:47)
[2021-03-17] MEDS: Milk of Magnesia 30 ML ORAL.SUSP PO (05:05)
[2021-03-17] MEDS: Omeprazole 20 MG CAPSULE.DR PO (05:07)
[2021-03-17 06:00] VITALS: BP 174/81; PULSE 88; RESP 20; TEMP 36.6; O2SAT 99
[2021-03-17] MEDS: Divalproex Sodium ER 250 MG TAB.ER.24H PO (08:33)
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
[2021-03-17] MEDS: Tamsulosin HCL 0.4 MG CAPSULE PO (14:50)
[2021-03-17] MEDS: Divalproex Sodium 500 MG TABLET.DR 1000 MG PO (23:52)
[2021-03-18] MEDS: diphenhydrAMINE HCL 25 MG TABLET 50 MG PO ×2 (00:24→21:03)
[2021-03-18] MEDS: Milk of Magnesia 30 ML ORAL.SUSP PO (02:54)
[2021-03-18] MEDS: Acetaminophen 325 MG TABLET 650 MG PO ×2 (02:54→09:04)
[2021-03-18] MEDS: Omeprazole 20 MG CAPSULE.DR PO (05:11)
[2021-03-18 08:40] LABS: Ammonia 24 umol/L (13-55)
[2021-03-18 08:57] LABS: Alanine Aminotransferase 36 U/L (0-40); Albumin Level 4.4 g/dL (3.5-5.0); Alkaline Phosphatase 81 U/L (39-117); Aspartate Amino Transferase 24 U/L (5-37); Bilirubin Direct 0.3 mg/dL (0.0-0.5); Bilirubin Total 0.7 mg/dL (0.0-1.0); Cholesterol 131 mg/dL; HDL Cholesterol 42 mg/dL; LDL Cholesterol Calculated 78 mg/dl; Total Protein 7.1 g/dL (6.5-8.0); Triglycerides 57 mg/dL
[2021-03-18] MEDS: Tamsulosin HCL 0.4 MG CAPSULE PO (08:59)
[2021-03-18 09:04] LABS: Valproate 93.4 mcg/mL (50.0-100.0)
[2021-03-18 09:27] LABS: Estimated Average Glucose 105 mg/dL; Hemoglobin A1c % 5.3 %
[2021-03-18 09:34] LABS: Reflex LDLD? No
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
[2021-03-18] MEDS: Ibuprofen 600 MG TABLET PO ×2 (16:38→21:02)
[2021-03-18 18:00] VITALS: BP 128/86; PULSE 99; TEMP 36.5; O2SAT 97
[2021-03-18] MEDS: Melatonin 3 MG TABLET 9 MG PO (21:03)
[2021-03-18] MEDS: Magnesium Hydrox/Alum Hydrox 30 ML ORAL.SUSP PO (22:07)
[2021-03-19] MEDS: Omeprazole 20 MG CAPSULE.DR PO (05:24)
[2021-03-19 06:00] VITALS: BP 158/99; PULSE 97; RESP 18; TEMP 36.3; O2SAT 98
[2021-03-19] MEDS: Ibuprofen 600 MG TABLET PO ×2 (08:47→23:01)
[2021-03-19] MEDS: Tamsulosin HCL 0.4 MG CAPSULE PO (08:48)
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
[2021-03-19] MEDS: HaloperidoL 5 MG TABLET 10 MG PO ×2 (15:17→23:01)
[2021-03-19] MEDS: clonazePAM 0.5 MG TABLET PO (17:13)
[2021-03-19] MEDS: diphenhydrAMINE HCL 25 MG TABLET 50 MG PO (17:50)
[2021-03-19 23:00] VITALS: BP 102/62; PULSE 92; TEMP 36.4
[2021-03-19] MEDS: Melatonin 3 MG TABLET 9 MG PO (23:01)
[2021-03-20] MEDS: Tamsulosin HCL 0.4 MG CAPSULE PO (09:33)
[2021-03-20] MEDS: Ibuprofen 600 MG TABLET PO ×2 (09:33→14:36)
[2021-03-20] MEDS: Omeprazole 20 MG CAPSULE.DR PO (09:35)
--- NOTE | 2021-03-20 09:43 | P.EN_ITS ---
Event Note Date of Service: 03/20/21 Event Note: Patient seen today for difficulty urinating. Patient denies diffic ulty urinating at this time. PT declined to comment further. UA from 03/13 unremarkable. Has received flomax for the past 2 days, may be improving symptoms. No other workup indicated at this time.
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
[2021-03-20] MEDS: HaloperidoL 5 MG TABLET PO (14:36)
[2021-03-20] MEDS: Lithium Carbonate ER 450 MG TABLET.ER PO (14:56)
[2021-03-20 15:55] VITALS: BP 161/89; PULSE 104; TEMP 36.5
[2021-03-20] MEDS: clonazePAM 0.5 MG TABLET PO (17:36)
[2021-03-20 21:00] VITALS: BP 133/87; PULSE 98
[2021-03-20] MEDS: Melatonin 3 MG TABLET 9 MG PO (21:11)
[2021-03-20] MEDS: HaloperidoL 5 MG TABLET 10 MG PO (21:12)
[2021-03-21] MEDS: Melatonin 3 MG TABLET 9 MG PO ×3 (02:36→20:54)
--- NOTE | 2021-03-21 09:00 | ECG_ITS ---
Test Reason : qtc Blood Pressure : / mmHG Vent. Rate : 099 BPM Atrial Rate : 099 BPM P-R Int : 148 ms QRS Dur : 080 ms QT Int : 348 ms P-R-T Axes : 038 049 043 degrees QTc Int : 446 ms Normal sinus rhythm Normal ECG No previous ECGs available Referred By: Cosme Juarez Electronically Signed By:TERRELL DONOHUE MD
[2021-03-21] MEDS: Tamsulosin HCL 0.4 MG CAPSULE PO (09:37)
[2021-03-21] MEDS: Omeprazole 20 MG CAPSULE.DR PO (09:37)
[2021-03-21] MEDS: Ibuprofen 600 MG TABLET PO ×2 (09:38→19:46)
--- NOTE | 2021-03-21 09:47 | PC.NURSE ---
Pt is refusing all 0900 psych meds. States that doctor doesnt know what he is talking about and he does not need the psych meds.
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
[2021-03-21 18:00] VITALS: BP 109/78; PULSE 84; RESP 16; TEMP 36.2; O2SAT 99
[2021-03-21] MEDS: clonazePAM 0.5 MG TABLET PO (18:36)
[2021-03-21] MEDS: HaloperidoL 5 MG TABLET 10 MG PO (19:46)
[2021-03-22 06:00] VITALS: BP 148/93; PULSE 103; RESP 18; TEMP 36.4; O2SAT 100
[2021-03-22] MEDS: Omeprazole 20 MG CAPSULE.DR PO (08:05)
[2021-03-22] MEDS: Tamsulosin HCL 0.4 MG CAPSULE PO (08:05)
[2021-03-22 18:00] VITALS: BP 140/85; PULSE 96; RESP 16; TEMP 36.2; O2SAT 98
[2021-03-22] MEDS: Lithium Carbonate ER 450 MG TABLET.ER PO (20:14)
[2021-03-22] MEDS: HaloperidoL 5 MG TABLET 10 MG PO (20:14)
[2021-03-22] MEDS: Melatonin 3 MG TABLET 9 MG PO (20:14)
[2021-03-22] MEDS: clonazePAM 0.5 MG TABLET PO (21:18)
--- NOTE | 2021-03-22 22:34 | HO.PSYCHPN ---
Subjective Subjective Date of Service: 03/22/21 Reason For Visit: Unspecified Schizophrenia Medical Problems Affecting Mental Status: No Interim History: patient's and some irritability today. Focused on Bill of rights and feels like his being violated. Feels like his protestant rights and medication list are being violated. Did discuss medications and court-ordered for same. He feels that He is being targeted by his and that his children are being mistreated is and he wants DCF involved. 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 Was unsure why that happened home eyes, but did endorse feeling very angry regarding his home situation and unsure if he would return there. Does not feel like he needs medications and would like that documented his and wanting lower doses of Haldol. Medication Compliance: Yes Side effects from medications: No Attending Groups: Yes Review of Systems Acute medical concerns: No Review of Systems Review of Systems no acute Mental Status Exam Mental Status Exam Narrative: engage. Some irritability. Largely organized. Some pressured speech. Some grandiosity. No SI. No HI. Does appear paranoid at times. Insight and judgment limited Diagnostics Vital Signs (24Hr): Vital Signs - 24 hr 03/22/21 06:00 03/22/21 18:00 Temperature 97.6 F 97.1 F Pulse Rate 103 H 96 Respiratory Rate 18 16 Blood Pressure 148/93 H 140/85 H Pulse Oximetry 100 98 Body Mass Index 32.9 Labs Results: 03/13/21 17:24 Medications Medications Current Medications Acetaminophen (Acetaminophen 325 Mg Tablet) 650 mg PO Q6H PRN PRN Reason: Headache/Pain Mild Scale (1-3) Last Admin: 03/18/21 09:04 Dose: 650 mg Documented by: Al Hydroxide/Mg Hydroxide (Magnesium Hydrox/Alum Hydrox 30 Ml Oral.Susp) 30 ml PO Q6H PRN PRN Reason: Heartburn/Nausea Last Admin: 03/18/21 22:07 Dose: 30 ml Documented by: Benztropine Mesylate (Benztropine Mesylate 1 Mg Tablet) 1 mg PO BID PRN PRN Reason: Extrapyramidal Effects Clonazepam (Clonazepam 0.5 Mg Tablet) 0.5 mg PO BID PRN PRN Reason: Anxiety Last Admin: 03/22/21 21:18 Dose: 0.5 mg Documented by: Diphenhydramine HCl (Diphenhydramine Hcl 25 Mg Tablet) 50 mg PO Q4H PRN PRN Reason: agitation Last Admin: 03/19/21 17:50 Dose: 50 mg Documented by: Diphenhydramine HCl (Diphenhydramine Hcl 25 Mg Tablet) 50 mg PO BEDTIME MRX1 PRN PRN Reason: Insomnia Last Admin: 03/18/21 21:03 Dose: 50 mg Documented by: Haloperidol (Haloperidol 5 Mg Tablet) 5 mg PO Q4H PRN PRN Reason: agitation Last Admin: 03/13/21 03:03 Dose: 5 mg Documented by: Haloperidol (Haloperidol 5 Mg Tablet) 10 mg PO BEDTIME LAZARO Last Admin: 03/22/21 20:14 Dose: 10 mg Documented by: Haloperidol Lactate (Haloperidol Lactate 5 Mg/Ml Vial) 10 mg IM BEDTIME PRN PRN Reason: IF REFUSES PO HALDOL [place] Carbonate ([place] Carbonate Er 450 Mg Tablet.Er) 450 mg PO BEDTIME [facility] Last Admin: 03/22/21 20:14 Dose: 450 mg Documented by: Magnesium Hydroxide (Milk Of Magnesia 30 Ml Oral.Susp) 30 ml PO DAILY PRN PRN Reason: Constipation Last Admin: 03/18/21 02:54 Dose: 30 ml Documented by: Melatonin (Melatonin 3 Mg Tablet) 9 mg PO BEDTIME MRX1 LAZARO Last Admin: 03/22/21 20:14 Dose: 9 mg Documented by: Omeprazole (Omeprazole 20 Mg Capsule.Dr) 20 mg PO DAILY@0630 [facility] Last Admin: 03/22/21 08:05 Dose: 20 mg Documented by: Ondansetron HCl (Ondansetron Odt 4 Mg Tab.Rapdis) 4 mg TRANSLINGU BEDTIME PRN PRN Reason: GIVE WITH LITHIUM Tamsulosin HCl (Tamsulosin Hcl 0.4 Mg Capsule) 0.4 mg PO DAILY [facility] Last Admin: 03/22/21 08:05 Dose: 0.4 mg Documented by: Allergies Allergies Allergy/AdvReac Type Severity Reaction Status Date / Time No Known Allergies Allergy Verified 03/06/21 20:38 Assessment & Plan Assessment & Plan (1) Routine medical exam: Status: Acute Code(s): Z00.00 - Encounter for general adult medical examination without abnormal findings Assessment and Plan: IMPRESSION: It is a he 45-year-old male with diagnosis of bipolar disorder, recently discharged from [facility] (following 20 days on a another inpatient unit in [place], possibly forensic) presents with? continued manic, paranoid, disorganized speech and behavior.? Patient presents as manic and with pressured speech, disorganized, paranoid thinking and with some grandiosity. Patient has no insight and does not want medications.? He is insisting on being discharged and will Renetta the hospital staff otherwise. Patient is frequently intents and presents as angry and somewhat menacing when he starts talking. -patient remains manic, not sleeping, with pressured speech and paranoid delusional thoughts; patient lacks all insight -03/13patient pulled the mirror off the wall in his bathroom and later ripped the soap dispenser off the wall in his bathroom.? Both times he said it was a miracle that they just fell off. Continues to have present with manic symptoms, pressured speech, paranoid delusions, disorganized thinking, no insight demanding to be discharged today.? Patient can become intense, glaring and making vague threats sometimes litigious threats but other times ones that sound physical, though he later recants -03/14 patient angry, with menacing stare, posturing, threatening biblical destruction, insulting staff and threatening staff...? Patient destroyed bathroom toilet paper dispenser by breaking off the wall.? Later he tried to kick the exit door to the unit open, could not be verbally redirected and security needed to be called, patient medically restrained 03/17 patient has remained taking Depakote and has become more calm and more logical. He still has paranoid delusions and lacks insight however his delusional thinking is less intense and he now makes comments that show he he is engaged in some reality testing, such as qualifying his past rambling about protestant stuff saying those were just thoughts (when before, there were floridly delusional and fixed beliefs). Patient does not think he has a mental illness or bipolar disorder; he does not think he needs medication and while he sometimes says he would consider taking it as an outpatient, he also says he does not plan to. Patient does realize that his past behaviors were off, however he has little insight into their extent and how they scared people prompting them to call the police further safety. It is marketing underwriter's opinion that patient has improved some due to continually taking Depakote. However he remains without any insight and there is little chance he will continue taking this medication if he were to be discharged, resulting in a rapid decompensation back to behaviors and delusional thinking that got him admitted 3 times this past month. 03/18 - patient remains angry at marketing underwriter, saying odd things with intense glare; calling marketing underwriter various insulting names and that marketing underwriter lies about him.? Patient clearly is a potential danger to others as he misinterprets very benign interactions as being threatening such as patient said that marketing underwriter raised up to him and that he almost hit this marketing underwriter.? He explained that when marketing underwriter shrugged his shoulders, he interpreted this as a physical threat and almost got physical in response. -court held today and patient ordered for involuntary commitment and substituted judgment with medication -patient does not want take Depakote and asked to be on Haldol to which marketing underwriter agreed -while marketing underwriter would preferably start patient on on lithium, patient refuses and marketing underwriter's only recourse would then be to have patient be given an IM injection of antipsychotic; at this point marketing underwriter is willing to acquiesce and start a trial of Haldol 03/20 slept last night with Haldol 10 mg at bedtime; remains manic and without any insight; patient ripped off the paper towel dispenser in his bathroom which now has to be locked for his safety. 03/22/2021: No changes to current regimen PLAN: Court ordered involuntary commitment and substituted judgment with medication Q 15 minutes checks for safety: LOCKED BATHROOM ADD Haldol 5mg qAM Continue Haldol 10mg qhs; PATIENT ID IS ON DUONG ORDER AND IF REFUSES HALDOL P.O. SHOULD GET HALDOL 10 MG IM Will leave lithium ordered q.h.s. in case patient changes mind and is willing to take it. Continue Clonazepam 0.5mg BID for anxiety buprofen for pt's complaint of Prostitis medical consult saw pt for complaint of Prostatitis; pt denied symptoms and hospitalist reports no further tx or follow up needed Continue Flomax for pt's complaint of difficult urination says Depakote makes him sick Med list on Duong: Depakote [place] Haldol Ziprasidone Risperdal Paliperidone Abilify labs wNL Patient asks for melatonin 6 mg and Benadryl 50 mg at bedtime which has been ordered n Assessment and Plan: Medical consultation sought for routine medical H&P. Patient has no active nor any major chronic medical issues. Patient has been counseled on age appropriate health maintenance as an outpatient. Continue care per primary team. Please re-consult if any issues arise. I spent minutes with the patient and/or on the patient floor today, greater than?50% of which was spent counseling/coordinating care. Reason for contiued inpatient stay Substantial Risk for: inability to function and rapid decompensation
[2021-03-23 06:00] VITALS: BP 141/86; PULSE 86; RESP 18; TEMP 37.1; O2SAT 100
[2021-03-23] MEDS: Omeprazole 20 MG CAPSULE.DR PO (06:35)
[2021-03-23] MEDS: Tamsulosin HCL 0.4 MG CAPSULE PO (08:28)
[2021-03-23] MEDS: clonazePAM 0.5 MG TABLET PO ×2 (11:12→19:12)
[2021-03-23] MEDS: Acetaminophen 325 MG TABLET 650 MG PO (12:10)
--- NOTE | 2021-03-23 12:48 | HO.PSYCHPN ---
Subjective Subjective Date of Service: 03/23/21 Reason For Visit: Unspecified Schizophrenia Medical Problems Affecting Mental Status: No Interim History: Patient still frustrated today. Tearful and crying when talking about family and being in the hospital. Feels like he has been betrayed. Feels like he has been broken by his hospital treatment team. Feels like his baptism rights have been violated. He wanted to communicate and have it documented that he feels he does not need medications and wants to be discharged. He also acknowledges that he might be open to taking Haldol had a lower dose. Feels like lithium is making him feel more tired. Did discuss need for an accurate lithium level and therefore consistency around taking same. Medication Compliance: Yes Side effects from medications: No Attending Groups: Yes Review of Systems Acute medical concerns: No Review of Systems Review of Systems no acute Mental Status Exam Mental Status Exam Narrative: Engaged. Some irritability. Largely organized. Some pressured speech. Some grandiosity. No SI. No HI. Does appear paranoid at times. Insight and judgment limited Diagnostics Vital Signs (24Hr): Vital Signs - 24 hr 03/22/21 18:00 03/23/21 06:00 Temperature 97.1 F 98.8 F Pulse Rate 96 86 Respiratory Rate 16 18 Blood Pressure 140/85 H 141/86 H Pulse Oximetry 98 100 Body Mass Index 32.9 Labs Results: 03/13/21 17:24 Medications Medications Current Medications Acetaminophen (Acetaminophen 325 Mg Tablet) 650 mg PO Q6H PRN PRN Reason: Headache/Pain Mild Scale (1-3) Last Admin: 03/23/21 12:10 Dose: 650 mg Documented by: Al Hydroxide/Mg Hydroxide (Magnesium Hydrox/Alum Hydrox 30 Ml Oral.Susp) 30 ml PO Q6H PRN PRN Reason: Heartburn/Nausea Last Admin: 03/18/21 22:07 Dose: 30 ml Documented by: Benztropine Mesylate (Benztropine Mesylate 1 Mg Tablet) 1 mg PO BID PRN PRN Reason: Extrapyramidal Effects Clonazepam (Clonazepam 0.5 Mg Tablet) 0.5 mg PO BID PRN PRN Reason: Anxiety Last Admin: 03/23/21 11:12 Dose: 0.5 mg Documented by: Diphenhydramine HCl (Diphenhydramine Hcl 25 Mg Tablet) 50 mg PO Q4H PRN PRN Reason: agitation Last Admin: 03/19/21 17:50 Dose: 50 mg Documented by: Diphenhydramine HCl (Diphenhydramine Hcl 25 Mg Tablet) 50 mg PO BEDTIME MRX1 PRN PRN Reason: Insomnia Last Admin: 03/18/21 21:03 Dose: 50 mg Documented by: Haloperidol (Haloperidol 5 Mg Tablet) 5 mg PO Q4H PRN PRN Reason: agitation Last Admin: 03/13/21 03:03 Dose: 5 mg Documented by: Haloperidol (Haloperidol 5 Mg Tablet) 10 mg PO BEDTIME [facility]ZARO Last Admin: 03/22/21 20:14 Dose: 10 mg Documented by: Haloperidol Lactate (Haloperidol Lactate 5 Mg/Ml Vial) 10 mg IM BEDTIME PRN PRN Reason: IF REFUSES PO HALDOL [place] Carbonate ([place] Carbonate Er 450 Mg Tablet.Er) 450 mg PO BEDTIME [facility] Last Admin: 03/22/21 20:14 Dose: 450 mg Documented by: Magnesium Hydroxide (Milk Of Magnesia 30 Ml Oral.Susp) 30 ml PO DAILY PRN PRN Reason: Constipation Last Admin: 03/18/21 02:54 Dose: 30 ml Documented by: Melatonin (Melatonin 3 Mg Tablet) 9 mg PO BEDTIME MRX1 [facility]ZARO Last Admin: 03/22/21 23:19 Dose: Not Given Documented by: Omeprazole (Omeprazole 20 Mg Capsule.Dr) 20 mg PO DAILY@0630 [facility] Last Admin: 03/23/21 06:35 Dose: 20 mg Documented by: Ondansetron HCl (Ondansetron Odt 4 Mg Tab.Rapdis) 4 mg TRANSLINGU BEDTIME PRN PRN Reason: GIVE WITH LITHIUM Tamsulosin HCl (Tamsulosin Hcl 0.4 Mg Capsule) 0.4 mg PO DAILY [facility] Last Admin: 03/23/21 08:28 Dose: 0.4 mg Documented by: Allergies Allergies Allergy/AdvReac Type Severity Reaction Status Date / Time No Known Allergies Allergy Verified 03/06/21 20:38 Assessment & Plan Assessment & Plan (1) Routine medical exam: Status: Acute Code(s): Z00.00 - Encounter for general adult medical examination without abnormal findings Assessment and Plan: IMPRESSION: It is a he 45-year-old male with diagnosis of bipolar disorder, recently discharged from [facility] (following 20 days on a another inpatient unit in [place], possibly forensic) presents with? continued manic, paranoid, disorganized speech and behavior.? Patient presents as manic and with pressured speech, disorganized, paranoid thinking and with some grandiosity. Patient has no insight and does not want medications.? He is insisting on being discharged and will Renetta the hospital staff otherwise. Patient is frequently intents and presents as angry and somewhat menacing when he starts talking. -patient remains manic, not sleeping, with pressured speech and paranoid delusional thoughts; patient lacks all insight -03/13patient pulled the mirror off the wall in his bathroom and later ripped the soap dispenser off the wall in his bathroom.? Both times he said it was a miracle that they just fell off. Continues to have present with manic symptoms, pressured speech, paranoid delusions, disorganized thinking, no insight demanding to be discharged today.? Patient can become intense, glaring and making vague threats sometimes litigious threats but other times ones that sound physical, though he later recants -03/14 patient angry, with menacing stare, posturing, threatening biblical destruction, insulting staff and threatening staff...? Patient destroyed bathroom toilet paper dispenser by breaking off the wall.? Later he tried to kick the exit door to the unit open, could not be verbally redirected and security needed to be called, patient medically restrained 03/17 patient has remained taking Depakote and has become more calm and more logical. He still has paranoid delusions and lacks insight however his delusional thinking is less intense and he now makes comments that show he he is engaged in some reality testing, such as qualifying his past rambling about baptism stuff saying those were just thoughts (when before, there were floridly delusional and fixed beliefs). Patient does not think he has a mental illness or bipolar disorder; he does not think he needs medication and while he sometimes says he would consider taking it as an outpatient, he also says he does not plan to. Patient does realize that his past behaviors were off, however he has little insight into their extent and how they scared people prompting them to call the police further safety. It is sports writer's opinion that patient has improved some due to continually taking Depakote. However he remains without any insight and there is little chance he will continue taking this medication if he were to be discharged, resulting in a rapid decompensation back to behaviors and delusional thinking that got him admitted 3 times this past month. 03/18 - patient remains angry at sports writer, saying odd things with intense glare; calling sports writer various insulting names and that sports writer lies about him.? Patient clearly is a potential danger to others as he misinterprets very benign interactions as being threatening such as patient said that sports writer raised up to him and that he almost hit this sports writer.? He explained that when sports writer shrugged his shoulders, he interpreted this as a physical threat and almost got physical in response. -court held today and patient ordered for involuntary commitment and substituted judgment with medication -patient does not want take Depakote and asked to be on Haldol to which sports writer agreed -while sports writer would preferably start patient on on lithium, patient refuses and sports writer's only recourse would then be to have patient be given an IM injection of antipsychotic; at this point sports writer is willing to acquiesce and start a trial of Haldol 03/20 slept last night with Haldol 10 mg at bedtime; remains manic and without any insight; patient ripped off the paper towel dispenser in his bathroom which now has to be locked for his safety. 03/23/2021: No changes to current regimen- reports he would like to talk with team about Haldol dose being lower and feeling like lithium makes him feel sedated. Did discuss need for an accurate lithium level and therefore consistency around taking same. PLAN: Court ordered involuntary commitment and substituted judgment with medication Q 15 minutes checks for safety: LOCKED BATHROOM ADD Haldol 5mg qAM Continue Haldol 10mg qhs; PATIENT ID IS ON DOUNG ORDER AND IF REFUSES HALDOL P.O. SHOULD GET HALDOL 10 MG IM Will leave lithium ordered q.h.s. in case patient changes mind and is willing to take it. Continue Clonazepam 0.5mg BID for anxiety buprofen for pt's complaint of Prostitis medical consult saw pt for complaint of Prostatitis; pt denied symptoms and hospitalist reports no further tx or follow up needed Continue Flomax for pt's complaint of difficult urination says Depakote makes him sick Med list on Duong: Depakote [place] Haldol Ziprasidone Risperdal Paliperidone Abilify labs wNL Patient asks for melatonin 6 mg and Benadryl 50 mg at bedtime which has been ordered n Assessment and Plan: Medical consultation sought for routine medical H&P. Patient has no active nor any major chronic medical issues. Patient has been counseled on age appropriate health maintenance as an outpatient. Continue care per primary team. Please re-consult if any issues arise. I spent minutes with the patient and/or on the patient floor today, greater than?50% of which was spent counseling/coordinating care. Reason for contiued inpatient stay Substantial Risk for: rapid decompensation
[2021-03-23 17:21] VITALS: BP 140/75; PULSE 85; RESP 16; TEMP 36.5; O2SAT 99
[2021-03-23] MEDS: HaloperidoL 5 MG TABLET 10 MG PO (19:48)
[2021-03-23] MEDS: Melatonin 3 MG TABLET 9 MG PO (19:49)
[2021-03-23] MEDS: Lithium Carbonate ER 450 MG TABLET.ER PO (19:49)
[2021-03-24] MEDS: Omeprazole 20 MG CAPSULE.DR PO (06:53)
[2021-03-24] MEDS: Tamsulosin HCL 0.4 MG CAPSULE PO (08:55)
[2021-03-24] MEDS: clonazePAM 0.5 MG TABLET PO ×2 (10:40→17:03)
--- NOTE | 2021-03-24 16:45 | P.PNPSI_ITS ---
Subjective Subjective Date of Service: 03/24/21 Reason For Visit: Unspecified Schizophrenia Interim History: pt more calm, more friendly, no insults, says technical writer is probably a good man...good doctor. He says still says technical writer lied to dockmaster saying that pt is mentally ill; he denies being mentally ill or needing medication but says he needs while on the unit since he's being made to stay h ere against his will. Pt still refers to numerology and makes strange anglican references and refers to his spartans but now sometimes adds caveat ...and that is the most ridiculous thing i've ever said. He says the only reason he was making anglican references was to test this technical writer to see if technical writer was trustworthy; still says technical writer is number [phone] and talks about binary codes, - 1,0,+1 but again says and that sounds ridiculous. Pt agrees that he was manic on admission but that it was due to lack of sleep and not due to mental illness. Pt says this was because his /brother in law were hounding him about theology and made him play made up game the [employer]ishe[employer], which pt demonstrated regarding medications pt agrees to increase [place]; he asks if he can go down on Haldol which technical writer agrees to pt sleeping through night Mental Status Exam Mental Status Exam Narrative: ?Pt is alert and oriented to person place and time but not situation.? Behavior is more calm, cooperative;patient is appropriately dressed with adequate hygiene; mood is described as mildly irritable but calm;? affect congruent; not glaring; speech process is mildly pressured but able to be interrupted; less often tangential or disorganized, though still is at times; Thought content remains on /brother in law manipulating system to have in admitted, not being mentally ill, suing state and intermittently on grandiose anglican self-references; denies any SI/HI. Denies AVH; ?Patients insight and judgment impaired. Diagnostics Vital Signs (24Hr): Vital Signs - 24 hr 03/23/21 17:21 Temperature 97.7 F Pulse Rate 85 Respiratory Rate 16 Blood Pressure 140/75 H Pulse Oximetry 99 Body Mass Index 32.9 Labs Results: 03/13/21 17:24 Medications Medications Current Medications Acetaminophen (Acetaminophen 325 Mg Tablet) 650 mg PO Q6H PRN PRN Reason: Headache/Pain Mild Scale (1-3) Last Admin: 03/23/21 12:10 Dose: 650 mg Documented by: Al Hydroxide/Mg Hydroxide (Magnesium Hydrox/Alum Hydrox 30 Ml Oral.Susp) 30 ml PO Q6H PRN PRN Reason: Heartburn/Nausea Last Admin: 03/18/21 22:07 Dose: 30 ml Documented by: Benztropine Mesylate (Benztropine Mesylate 1 Mg Tablet) 1 mg PO BID PRN PRN Reason: Extrapyramidal Effects Clonazepam (Clonazepam 0.5 Mg Tablet) 0.5 mg PO BID PRN PRN Reason: Anxiety Last Admin: 03/24/21 10:40 Dose: 0.5 mg Documented by: Diphenhydramine HCl (Diphenhydramine Hcl 25 Mg Tablet) 50 mg PO Q4H PRN PRN Reason: agitation Last Admin: 03/19/21 17:50 Dose: 50 mg Documented by: Diphenhydramine HCl (Diphenhydramine Hcl 25 Mg Tablet) 50 mg PO BEDTIME MRX1 PRN PRN Reason: Insomnia Last Admin: 03/18/21 21:03 Dose: 50 mg Documented by: Haloperidol (Haloperidol 5 Mg Tablet) 5 mg PO Q4H PRN PRN Reason: agitation Last Admin: 03/13/21 03:03 Dose: 5 mg Documented by: Haloperidol (Haloperidol 5 Mg Tablet) 5 mg PO BEDTIME [facility] Haloperidol Lactate (Haloperidol Lactate 5 Mg/Ml Vial) 5 mg IM BEDTIME PRN PRN Reason: IF REFUSES PO HALDOL [place] Carbonate ([place] Carbonate 300 Mg Tablet) 600 mg PO BEDTIME [facility] Magnesium Hydroxide (Milk Of Magnesia 30 Ml Oral.Susp) 30 ml PO DAILY PRN PRN Reason: Constipation Last Admin: 03/18/21 02:54 Dose: 30 ml Documented by: Melatonin (Melatonin 3 Mg Tablet) 9 mg PO BEDTIME MRX1 [facility] Last Admin: 03/24/21 06:53 Dose: Not Given Documented by: Omeprazole (Omeprazole 20 Mg Capsule.Dr) 20 mg PO DAILY@0630 [facility] Last Admin: 03/24/21 06:53 Dose: 20 mg Documented by: Ondansetron HCl (Ondansetron Odt 4 Mg Tab.Rapdis) 4 mg TRANSLINGU BEDTIME PRN PRN Reason: GIVE WITH LITHIUM Tamsulosin HCl (Tamsulosin Hcl 0.4 Mg Capsule) 0.4 mg PO DAILY [facility] Last Admin: 03/24/21 08:55 Dose: 0.4 mg Documented by: Allergies Allergies Allergy/AdvReac Type Severity Reaction Status Date / Time No Known Allergies Allergy Verified 03/06/21 20:38 Assessment & Plan Assessment & Plan (1) Routine medical exam: Status: Acute Code(s): Z00.00 - Encounter for general adult medical examination without abnormal findings Assessment and Plan: IMPRESSION: It is a he 45-year-old male with diagnosis of bipolar disorder, recently discharged from [facility] (following 20 days on a another inpatient unit in [place], possibly forensic) presents with? continued manic, paranoid, disorganized speech and behavior.? Patient presents as manic and with pressured speech, disorganized, paranoid thinking and with some grandiosity. Patient has no insight and does not want medications.? He is insisting on being discharged and will Renetta the hospital staff otherwise. Patient is frequently intents and presents as angry and somewhat menacing when he starts talking. -patient remains manic, not sleeping, with pressured speech and paranoid delusional thoughts; patient lacks all insight -03/13patient pulled the mirror off the wall in his bathroom and later ripped the soap dispenser off the wall in his bathroom.? Both times he said it was a miracle that they just fell off. Continues to have present with manic symptoms, pressured speech, paranoid delusions, disorganized thinking, no insight demanding to be discharged today.? Patient can become intense, glaring and making vague threats sometimes litigious threats but other times ones that sound physical, though he later recants -03/14 patient angry, with menacing stare, posturing, threatening biblical destruction, insulting staff and threatening staff...? Patient destroyed bathroom toilet paper dispenser by breaking off the wall.? Later he tried to kick the exit door to the unit open, could not be verbally redirected and security needed to be called, patient medically restrained 03/17 patient has remained taking Depakote and has become more calm and more logical. He still has paranoid delusions and lacks insight however his delusional thinking is less intense and he now makes comments that show he he is engaged in some reality testing, such as qualifying his past rambling about anglican stuff saying those were just thoughts (when before, there were floridly delusional and fixed beliefs). Patient does not think he has a mental illness or bipolar disorder; he does not think he needs medication and while he sometimes says he would consider taking it as an outpatient, he also says he d oes not plan to. Patient does realize that his past behaviors were off, however he has little insight into their extent and how they scared people prompting them to call the police further safety. It is technical writer's opinion that patient has improved some due to continually taking Depakote. However he remains without any insight and there is little chance he will continue taking this medication if he were to be discharged, resulting in a rapid decompensation back to behaviors and delusional thinking that got him admitted 3 times this past month. 03/18 - patient remains angry at technical writer, saying odd things with intense glare; calling technical writer various insulting names and that technical writer lies about him.? Patient clearly is a potential danger to others as he misinterprets very benign interactions as being threatening such as patient said that technical writer raised up to him and that he almost hit this technical writer.? He explained that when technical writer shrugged his shoulders, he interpreted this as a physical threat and almost got physical in response. -court held today and patient ordered for involuntary commitment and substituted judgment with medication -patient does not want take Depakote and asked to be on Haldol to which technical writer agreed -while technical writer would preferably start patient on on lithium, patient refuses and technical writer's only recourse would then be to have patient be given an IM injection of antipsychotic; at this point technical writer is willing to acquiesce and start a trial of Haldol 03/20 slept last night with Haldol 10 mg at bedtime; remains manic and without any insight; patient ripped off the paper towel dispenser in his bathroom which now has to be locked for his safety. 03/24 more calm and sleeping since starting lithium; wants to reduce haldol; still lacks insight and with delusional thinking, but less intense; has some very minimal insight seen with small admission that some of his behaviors and speech have been strange. PLAN: Court ordered involuntary commitment and substituted judgment with medication Q 15 minutes checks for safety: Increase Trin[place] to 600mg lower Haldol to 5mg at bed PATIENT ID IS ON DUONG ORDER AND IF REFUSES HALDOL P.O. SHOULD GET HALDOL IM Continue Clonazepam 0.5mg BID for anxiety Continue Flomax for pt's complaint of difficult urination says Depakote makes him sick Med list on Duong: Depakote [place] Haldol Ziprasidone Risperdal Paliperidone Abilify labs wNL Patient asks for melatonin 6 mg and Benadryl 50 mg at bedtime which has been ordered n Assessment and Plan: Medical consultation sought for routine medical H&P. Patient has no active nor any major chronic medical issues. Patient has been counseled on age appropriate health maintenance as an outpatie nt. Continue care per primary team. Please re-consult if any issues arise. I spent minutes with the patient and/or on the patient floor today, greater than?50% of which was spent counseling/coordinating care. Reason for contiued inpatient stay Substantial Risk for: inability to function
[2021-03-24 17:15] VITALS: BP 133/85; PULSE 98; TEMP 36.7
[2021-03-24] MEDS: Lithium Carbonate 300 MG TABLET 600 MG PO (20:42)
[2021-03-24] MEDS: HaloperidoL 5 MG TABLET PO (20:43)
[2021-03-24] MEDS: Melatonin 3 MG TABLET 9 MG PO (20:43)
[2021-03-25] MEDS: Magnesium Hydrox/Alum Hydrox 30 ML ORAL.SUSP PO (01:23)
[2021-03-25] MEDS: diphenhydrAMINE HCL 25 MG TABLET 50 MG PO ×2 (03:09→20:20)
[2021-03-25 06:00] VITALS: BP 138/81; PULSE 80; RESP 18; TEMP 36.6; O2SAT 100
[2021-03-25] MEDS: Tamsulosin HCL 0.4 MG CAPSULE PO (08:52)
[2021-03-25] MEDS: Omeprazole 20 MG CAPSULE.DR PO (09:01)
[2021-03-25] MEDS: clonazePAM 0.5 MG TABLET PO ×2 (10:03→16:50)
--- NOTE | 2021-03-25 10:09 | HO.PSYCHPN ---
Subjective Subjective Date of Service: 03/25/21 Reason For Visit: Unspecified Schizophrenia Interim History: a little emotional today thinking about his children; still lacks insight and says not mentally ill; says he thinks service writer advisor is a good rudolph and will try not to timbo. Pt expresses some delusional thoughts saying he , made a covenenant with G-d and that he will take this service writer advisor with him (which is a good thing). Unlike before lithium, pt adds that he's not sure he really did , but if he did service writer advisor can go w/ him,. he is ok with continued titration of lithium; asks for haldol to be removed, says does not like way it feels Mental Status Exam Mental Status Exam Narrative: Pt is alert and oriented to person place and time but not situation.? Behavior is more calm, cooperative;patient is appropriately dressed with adequate hygiene; mood is described as mildly irritable but calm;? affect congruent; not glaring; speech process is mildly pressured but able to be interrupted; less often tangential or disorganized, though still is at times; Thought content remains on /brother in law manipulating system to have in admitted, not being mentally ill, suing state and intermittently on grandiose zoroastrianism self-references; denies any SI/HI. Denies AVH; ?Patients insight and judgment impaired. Diagnostics Vital Signs (24Hr): Vital Signs - 24 hr 03/24/21 17:15 03/25/21 06:00 Temperature 98.1 F 97.9 F Pulse Rate 98 80 Respiratory Rate 18 Blood Pressure 133/85 138/81 Pulse Oximetry 100 Body Mass Index 32.9 Labs Results: 03/13/21 17:24 Medications Medications Current Medications Acetaminophen (Acetaminophen 325 Mg Tablet) 650 mg PO Q6H PRN PRN Reason: Headache/Pain Mild Scale (1-3) Last Admin: 03/23/21 12:10 Dose: 650 mg Documented by: Al Hydroxide/Mg Hydroxide (Magnesium Hydrox/Alum Hydrox 30 Ml Oral.Susp) 30 ml PO Q6H PRN PRN Reason: Heartburn/Nausea Last Admin: 03/25/21 01:23 Dose: 30 ml Documented by: Benztropine Mesylate (Benztropine Mesylate 1 Mg Tablet) 1 mg PO BID PRN PRN Reason: Extrapyramidal Effects Clonazepam (Clonazepam 0.5 Mg Tablet) 0.5 mg PO BID PRN PRN Reason: Anxiety Last Admin: 03/25/21 10:03 Dose: 0.5 mg Documented by: Diphenhydramine HCl (Diphenhydramine Hcl 25 Mg Tablet) 50 mg PO Q4H PRN PRN Reason: agitation Last Admin: 03/25/21 03:09 Dose: 50 mg Documented by: Diphenhydramine HCl (Diphenhydramine Hcl 25 Mg Tablet) 50 mg PO BEDTIME MRX1 PRN PRN Reason: Insomnia Last Admin: 03/18/21 21:03 Dose: 50 mg Documented by: Haloperidol (Haloperidol 5 Mg Tablet) 5 mg PO Q4H PRN PRN Reason: agitation Last Admin: 03/13/21 03:03 Dose: 5 mg Documented by: Haloperidol (Haloperidol 5 Mg Tablet) 5 mg PO BEDTIME [facility] Last Admin: 03/24/21 20:43 Dose: 5 mg Documented by: Haloperidol Lactate (Haloperidol Lactate 5 Mg/Ml Vial) 5 mg IM BEDTIME PRN PRN Reason: IF REFUSES PO HALDOL [place] Carbonate ([place] Carbonate 300 Mg Tablet) 600 mg PO BEDTIME [facility] Last Admin: 03/24/21 20:42 Dose: 600 mg Documented by: Magnesium Hydroxide (Milk Of Magnesia 30 Ml Oral.Susp) 30 ml PO DAILY PRN PRN Reason: Constipation Last Admin: 03/18/21 02:54 Dose: 30 ml Documented by: Melatonin (Melatonin 3 Mg Tablet) 9 mg PO BEDTIME MRX1 [facility] Last Admin: 03/25/21 01:22 Dose: Not Given Documented by: Omeprazole (Omeprazole 20 Mg Capsule.) 20 mg PO DAILY@0630 [facility] Last Admin: 03/25/21 09:01 Dose: 20 mg Documented by: Ondansetron HCl (Ondansetron Odt 4 Mg Tab.Rapdis) 4 mg TRANSLINGU BEDTIME PRN PRN Reason: GIVE WITH LITHIUM Tamsulosin HCl (Tamsulosin Hcl 0.4 Mg Capsule) 0.4 mg PO DAILY [facility] Last Admin: 03/25/21 08:52 Dose: 0.4 mg Documented by: Allergies Allergies Allergy/AdvReac Type Severity Reaction Status Date / Time No Known Allergies Allergy Verified 03/06/21 20:38 Assessment & Plan Assessment & Plan (1) Routine medical exam: Status: Acute Code(s): Z00.00 - Encounter for general adult medical examination without abnormal findings Assessment and Plan: IMPRESSION: It is a he 45-year-old male with diagnosis of bipolar disorder, recently discharged from [facility] (following 20 days on a another inpatient unit in [place], possibly forensic) presents with? continued manic, paranoid, disorganized speech and behavior.? Patient presents as manic and with pressured speech, disorganized, paranoid thinking and with some grandiosity. Patient has no insight and does not want medications.? He is insisting on being discharged and will Timbo the hospital staff otherwise. Patient is frequently intents and presents as angry and somewhat menacing when he starts talking. -patient remains manic, not sleeping, with pressured speech and paranoid delusional thoughts; patient lacks all insight -03/13patient pulled the mirror off the wall in his bathroom and later ripped the soap dispenser off the wall in his bathroom.? Both times he said it was a miracle that they just fell off. Continues to have present with manic symptoms, pressured speech, paranoid delusions, disorganized thinking, no insight demanding to be discharged today.? Patient can become intense, glaring and making vague threats sometimes litigious threats but other times ones that sound physical, though he later recants -03/14 patient angry, with menacing stare, posturing, threatening biblical destruction, insulting staff and threatening staff...? Patient destroyed bathroom toilet paper dispenser by breaking off the wall.? Later he tried to kick the exit door to the unit open, could not be verbally redirected and security needed to be called, patient medically restrained 03/17 patient has remained taking Depakote and has become more calm and more logical. He still has paranoid delusions and lacks insight however his delusional thinking is less intense and he now makes comments that show he he is engaged in some reality testing, such as qualifying his past rambling about zoroastrianism stuff saying those were just thoughts (when before, there were floridly delusional and fixed beliefs). Patient does not think he has a mental illness or bipolar disorder; he does not think he needs medication and while he sometimes says he would consider taking it as an outpatient, he also says he does not plan to. Patient does realize that his past behaviors were off, however he has little insight into their extent and how they scared people prompting them to call the police further safety. It is service writer advisor's opinion that patient has improved some due to continually taking Depakote. However he remains without any insight and there is little chance he will continue taking this medication if he were to be discharged, resulting in a rapid decompensation back to behaviors and delusional thinking that got him admitted 3 times this past month. 03/18 - patient remains angry at service writer advisor, saying odd things with intense glare; calling service writer advisor various insulting names and that service writer advisor lies about him.? Patient clearly is a potential danger to others as he misinterprets very benign interactions as being threatening such as patient said that service writer advisor raised up to him and that he almost hit this service writer advisor.? He explained that when service writer advisor shrugged his shoulders, he interpreted this as a physical threat and almost got physical in response. -court held today and patient ordered for involuntary commitment and substituted judgment with medication -patient does not want take Depakote and asked to be on Haldol to which service writer advisor agreed -while service writer advisor would preferably start patient on on lithium, patient refuses and service writer advisor's only recourse would then be to have patient be given an IM injection of antipsychotic; at this point service writer advisor is willing to acquiesce and start a trial of Haldol 03/20 slept last night with Haldol 10 mg at bedtime; remains manic and without any insight; patient ripped off the paper towel dispenser in his bathroom which now has to be locked for his safety. 03/24 more calm and sleeping since starting lithium; wants to reduce haldol; still lacks insight and with delusional thinking, but less intense; has some very minimal insight seen with small admission that some of his behaviors and speech have been strange. PLAN: Court ordered involuntary commitment and substituted judgment with medication Q 15 minutes checks for safety:? INCREASED TO [place] to 900mg dc Haldol PATIENT ID IS ON DUONG ORDER Continue Clonazepam 0.5mg BID for anxiety Continue Flomax for pt's complaint of difficult urination says Depakote makes him sick Med list on Duong: Depakote [place] Haldol Ziprasidone Risperdal Paliperidone Abilify labs wNL Patient asks for melatonin 6 mg and Benadryl 50 mg at bedtime which has been ordered n Assessment and Plan: Medical consultation sought for routine medical H&P. Patient has no active nor any major chronic medical issues. Patient has been counseled on age appropriate health maintenance as an outpatient. Continue care per primary team. Please re-consult if any issues arise. I spent minutes with the patient and/or on the patient floor today, greater than?50% of which was spent counseling/coordinating care. Reason for contiued inpatient stay Substantial Risk for: inability to function
[2021-03-25] MEDS: Acetaminophen 325 MG TABLET 650 MG PO ×2 (12:34→19:42)
[2021-03-25 19:10] VITALS: BP 126/86; PULSE 101; TEMP 36.7
[2021-03-25] MEDS: Lithium Carbonate 300 MG TABLET 900 MG PO (20:19)
[2021-03-25] MEDS: Melatonin 3 MG TABLET 9 MG PO (20:21)
[2021-03-26 04:07] VITALS: BP 136/71; PULSE 88; TEMP 36.4; O2SAT 98
[2021-03-26] MEDS: Melatonin 3 MG TABLET 9 MG PO ×3 (04:39→20:49)
[2021-03-26] MEDS: diphenhydrAMINE HCL 25 MG TABLET 50 MG PO ×2 (04:40→20:50)
[2021-03-26] MEDS: Acetaminophen 325 MG TABLET 650 MG PO ×3 (08:36→20:50)
[2021-03-26] MEDS: Tamsulosin HCL 0.4 MG CAPSULE PO (08:36)
[2021-03-26] MEDS: Omeprazole 20 MG CAPSULE.DR PO (08:36)
[2021-03-26] MEDS: clonazePAM 0.5 MG TABLET 0.25 MG PO ×2 (08:39→15:05)
--- NOTE | 2021-03-26 17:08 | HO.PSYCHPN ---
Subjective Subjective Date of Service: 03/26/21 Reason For Visit: Unspecified Schizophrenia Interim History: patient remains moderately manic, poor insight; he's willing to increase Van Meter (even though it's on his [place]). Sleeping; no anger; pt says tremor is resolved now that Haldol is discontinued. Mental Status Exam Mental Status Exam Narrative: Pt is alert and oriented to person place and time but not situation.? Behavior is more calm, cooperative;patient is appropriately dressed with adequate hygiene; mood is described as mildly irritable but calm;? affect congruent; eye contact adequate; speech process is mildly pressured but able to be interrupted; less often tangential or disorganized, though still is at times; Thought content remains on /brother in law manipulating system to have in admitted, not being mentally ill, suing state and intermittently on grandiose scientology self-references; denies any SI/HI. Denies AVH; ?Patients insight and judgment impaired. Diagnostics Vital Signs (24Hr): Vital Signs - 24 hr 03/25/21 19:10 03/26/21 04:07 Temperature 98.1 F 97.5 F Pulse Rate 101 H 88 Blood Pressure 126/86 136/71 Pulse Oximetry 98 Body Mass Index 32.9 Labs Results: 03/13/21 17:24 Medications Medications Current Medications Acetaminophen (Acetaminophen 325 Mg Tablet) 650 mg PO Q6H PRN PRN Reason: Headache/Pain Mild Scale (1-3) Last Admin: 03/26/21 15:05 Dose: 650 mg Documented by: Al Hydroxide/Mg Hydroxide (Magnesium Hydrox/Alum Hydrox 30 Ml Oral.Susp) 30 ml PO Q6H PRN PRN Reason: Heartburn/Nausea Last Admin: 03/25/21 01:23 Dose: 30 ml Documented by: Benztropine Mesylate (Benztropine Mesylate 1 Mg Tablet) 1 mg PO BID PRN PRN Reason: Extrapyramidal Effects Clonazepam (Clonazepam 0.5 Mg Tablet) 0.25 mg PO QID PRN PRN Reason: Anxiety Last Admin: 03/26/21 15:05 Dose: 0.25 mg Documented by: Diphenhydramine HCl (Diphenhydramine Hcl 25 Mg Tablet) 50 mg PO Q4H PRN PRN Reason: agitation Last Admin: 03/25/21 03:09 Dose: 50 mg Documented by: Diphenhydramine HCl (Diphenhydramine Hcl 25 Mg Tablet) 50 mg PO BEDTIME MRX1 PRN PRN Reason: Insomnia Last Admin: 03/26/21 04:40 Dose: 50 mg Documented by: Haloperidol (Haloperidol 5 Mg Tablet) 5 mg PO Q4H PRN PRN Reason: agitation Last Admin: 03/13/21 03:03 Dose: 5 mg Documented by: Van Meter Carbonate (Van Meter Carbonate Er 450 Mg Tablet.Er) 900 mg PO BEDTIME LAZARO Magnesium Hydroxide (Milk Of Magnesia 30 Ml Oral.Susp) 30 ml PO DAILY PRN PRN Reason: Constipation Last Admin: 03/18/21 02:54 Dose: 30 ml Documented by: Melatonin (Melatonin 3 Mg Tablet) 9 mg PO BEDTIME MRX1 LAZARO Last Admin: 03/26/21 04:39 Dose: 9 mg Documented by: Omeprazole (Omeprazole 20 Mg Capsule.Dr) 20 mg PO DAILY@0630 [facility] Last Admin: 03/26/21 08:36 Dose: 20 mg Documented by: Ondansetron HCl (Ondansetron Odt 4 Mg Tab.Rapdis) 4 mg TRANSLINGU BEDTIME PRN PRN Reason: GIVE WITH LITHIUM Tamsulosin HCl (Tamsulosin Hcl 0.4 Mg Capsule) 0.4 mg PO DAILY [facility] Last Admin: 03/26/21 08:36 Dose: 0.4 mg Documented by: Allergies Allergies Allergy/AdvReac Type Severity Reaction Status Date / Time No Known Allergies Allergy Verified 03/06/21 20:38 Assessment & Plan Assessment & Plan (1) Routine medical exam: Status: Acute Code(s): Z00.00 - Encounter for general adult medical examination without abnormal findings Assessment and Plan: IMPRESSION: It is a he 45-year-old male with diagnosis of bipolar disorder, recently discharged from [facility] (following 20 days on a another inpatient unit in [place], possibly forensic) presents with? continued manic, paranoid, disorganized speech and behavior.? Patient presents as manic and with pressured speech, disorganized, paranoid thinking and with some grandiosity. Patient has no insight and does not want medications.? He is insisting on being discharged and will Renetta the hospital staff otherwise. Patient is frequently intents and presents as angry and somewhat menacing when he starts talking. -patient remains manic, not sleeping, with pressured speech and paranoid delusional thoughts; patient lacks all insight -03/13patient pulled the mirror off the wall in his bathroom and later ripped the soap dispenser off the wall in his bathroom.? Both times he said it was a miracle that they just fell off. Continues to have present with manic symptoms, pressured speech, paranoid delusions, disorganized thinking, no insight demanding to be discharged today.? Patient can become intense, glaring and making vague threats sometimes litigious threats but other times ones that sound physical, though he later recants -03/14 patient angry, with menacing stare, posturing, threatening biblical destruction, insulting staff and threatening staff...? Patient destroyed bathroom toilet paper dispenser by breaking off the wall.? Later he tried to kick the exit door to the unit open, could not be verbally redirected and security needed to be called, patient medically restrained 03/17 patient has remained taking Depakote and has become more calm and more logical. He still has paranoid delusions and lacks insight however his delusional thinking is less intense and he now makes comments that show he he is engaged in some reality testing, such as qualifying his past rambling about scientology stuff saying those were just thoughts (when before, there were floridly delusional and fixed beliefs). Patient does not think he has a mental illness or bipolar disorder; he does not think he needs medication and while he sometimes says he would consider taking it as an outpatient, he also says he does not plan to. Patient does realize that his past behaviors were off, however he has little insight into their extent and how they scared people prompting them to call the police further safety. It is writer technical publications's opinion that patient has improved some due to continually taking Depakote. However he remains without any insight and there is little chance he will continue taking this medication if he were to be discharged, resulting in a rapid decompensation back to behaviors and delusional thinking that got him admitted 3 times this past month. 03/18 - patient remains angry at writer technical publications, saying odd things with intense glare; calling writer technical publications various insulting names and that writer technical publications lies about him.? Patient clearly is a potential danger to others as he misinterprets very benign interactions as being threatening such as patient said that writer technical publications raised up to him and that he almost hit this writer technical publications.? He explained that when writer technical publications shrugged his shoulders, he interpreted this as a physical threat and almost got physical in response. -court held today and patient ordered for involuntary commitment and substituted judgment with medication -patient does not want take Depakote and asked to be on Haldol to which writer technical publications agreed -while writer technical publications would preferably start patient on on lithium, patient refuses and writer technical publications's only recourse would then be to have patient be given an IM injection of antipsychotic; at this point writer technical publications is willing to acquiesce and start a trial of Haldol 03/20 slept last night with Haldol 10 mg at bedtime; remains manic and without any insight; patient ripped off the paper towel dispenser in his bathroom which now has to be locked for his safety. 03/24 more calm and sleeping since starting lithium; wants to reduce haldol; still lacks insight and with delusional thinking, but less intense; has some very minimal insight seen with small admission that some of his behaviors and speech have been strange. PLAN: Court ordered involuntary commitment and substituted judgment with medication Q 15 minutes checks for safety:? Van Meter ER 900mg dc Haldol PATIENT IS ON [place] ORDER Continue Clonazepam 0.5mg BID for anxiety Continue Flomax for pt's complaint of difficult urination says Depakote makes him sick Med list on [place]: Depakote Van Meter Haldol Ziprasidone Risperdal Paliperidone Abilify labs wNL Patient asks for melatonin 6 mg and Benadryl 50 mg at bedtime which has been ordered n Assessment and Plan: Medical consultation sought for routine medical H&P. Patient has no active nor any major chronic medical issues. Patient has been counseled on age appropriate health maintenance as an outpatient. Continue care per primary team. Please re-consult if any issues arise. I spent minutes with the patient and/or on the patient floor today, greater than?50% of which was spent counseling/coordinating care. Reason for contiued inpatient stay Substantial Risk for: rapid decompensation and med/psych decompensation
[2021-03-26 18:00] VITALS: BP 138/83; PULSE 95; RESP 16; TEMP 36.3; O2SAT 100
[2021-03-26] MEDS: Lithium Carbonate ER 450 MG TABLET.ER 900 MG PO (19:54)
[2021-03-27] MEDS: Omeprazole 20 MG CAPSULE.DR PO (05:01)
[2021-03-27 05:23] VITALS: BP 122/75; PULSE 78; RESP 18; TEMP 36.2; O2SAT 98
[2021-03-27] MEDS: Tamsulosin HCL 0.4 MG CAPSULE PO (08:05)
[2021-03-27] MEDS: Acetaminophen 325 MG TABLET 650 MG PO ×3 (08:06→20:10)
--- NOTE | 2021-03-27 09:50 | HO.PSYCHPN ---
Subjective Subjective Date of Service: 03/27/21 Reason For Visit: Unspecified Schizophrenia Interim History: Patient irritable with tag writer today. Says the longer he is kept in the hospital the more likely his to Renetta this tag writer. Patient remains willing to say that he was manic on admission but says it was only due to lack of sleep and continues to adamantly deny that he has a mental illness. He says he will not take medications once he leaves. Patient did have a good conversation with his which he said was relieving and that she wants him to come back home. Patient remains with sikh and grandiose thoughts saying that he back in [place] during which time he made a Covenant with god and now has come back. He said that while here, he has been testing the staff because he needs to develop Street credit with god. Patient told social science analyst he invented the image of the [employer] (geometical drawing representing various religions). Mental Status Exam Mental Status Exam Narrative: Pt is alert and oriented to person place and time but not situation.? Behavior is more calm, still irritable; generally cooperative, though less so today; patient is appropriately dressed with adequate hygiene; mood is described as mildly irritable but calm;? affect congruent; eye contact adequate; speech process is mildly pressured but able to be interrupted; less often tangential or disorganized, though still is at times; Thought content remains sikh and grandiose themes and being wrongfully admitted since he does not have a mental illness; denies any SI/HI. Denies AVH; ?Patients insight and judgment impaired. Diagnostics Vital Signs (24Hr): Vital Signs - 24 hr 03/26/21 18:00 03/27/21 05:23 Temperature 97.4 F 97.2 F Pulse Rate 95 78 Respiratory Rate 16 18 Blood Pressure 138/83 122/75 Pulse Oximetry 100 98 Body Mass Index 32.9 Labs Results: 03/13/21 17:24 Medications Medications Current Medications Acetaminophen (Acetaminophen 325 Mg Tablet) 650 mg PO Q6H PRN PRN Reason: Headache/Pain Mild Scale (1-3) Last Admin: 03/27/21 08:06 Dose: 650 mg Documented by: Al Hydroxide/Mg Hydroxide (Magnesium Hydrox/Alum Hydrox 30 Ml Oral.Susp) 30 ml PO Q6H PRN PRN Reason: Heartburn/Nausea Last Admin: 03/25/21 01:23 Dose: 30 ml Documented by: Benztropine Mesylate (Benztropine Mesylate 1 Mg Tablet) 1 mg PO BID PRN PRN Reason: Extrapyramidal Effects Clonazepam (Clonazepam 0.5 Mg Tablet) 0.25 mg PO QID PRN PRN Reason: Anxiety Last Admin: 03/26/21 15:05 Dose: 0.25 mg Documented by: Diphenhydramine HCl (Diphenhydramine Hcl 25 Mg Tablet) 50 mg PO Q4H PRN PRN Reason: agitation Last Admin: 03/26/21 20:50 Dose: 50 mg Documented by: Diphenhydramine HCl (Diphenhydramine Hcl 25 Mg Tablet) 50 mg PO BEDTIME MRX1 PRN PRN Reason: Insomnia Last Admin: 03/26/21 04:40 Dose: 50 mg Documented by: Haloperidol (Haloperidol 5 Mg Tablet) 5 mg PO Q4H PRN PRN Reason: agitation Last Admin: 03/13/21 03:03 Dose: 5 mg Documented by: Mitchell Carbonate (Mitchell Carbonate Er 450 Mg Tablet.Er) 900 mg PO BEDTIME [facility] Last Admin: 03/26/21 19:54 Dose: 900 mg Documented by: Magnesium Hydroxide (Milk Of Magnesia 30 Ml Oral.Susp) 30 ml PO DAILY PRN PRN Reason: Constipation Last Admin: 03/18/21 02:54 Dose: 30 ml Documented by: Melatonin (Melatonin 3 Mg Tablet) 9 mg PO BEDTIME MRX1 LAZARO Last Admin: 03/26/21 20:49 Dose: 9 mg Documented by: Omeprazole (Omeprazole 20 Mg Capsule.Dr) 20 mg PO DAILY@0630 [facility] Last Admin: 03/27/21 05:01 Dose: 20 mg Documented by: Ondansetron HCl (Ondansetron Odt 4 Mg Tab.Rapdis) 4 mg TRANSLINGU BEDTIME PRN PRN Reason: GIVE WITH LITHIUM Tamsulosin HCl (Tamsulosin Hcl 0.4 Mg Capsule) 0.4 mg PO DAILY [facility] Last Admin: 03/27/21 08:05 Dose: 0.4 mg Documented by: Allergies Allergies Allergy/AdvReac Type Severity Reaction Status Date / Time No Known Allergies Allergy Verified 03/06/21 20:38 Assessment & Plan Assessment & Plan (1) Routine medical exam: Status: Acute Code(s): Z00.00 - Encounter for general adult medical examination without abnormal findings Assessment and Plan: IMPRESSION: It is a he 45-year-old male with diagnosis of bipolar disorder, recently discharged from [facility] (following 20 days on a another inpatient unit in [place], possibly forensic) presents with? continued manic, paranoid, disorganized speech and behavior.? Patient presents as manic and with pressured speech, disorganized, paranoid thinking and with some grandiosity. Patient has no insight and does not want medications.? He is insisting on being discharged and will Renetta the hospital staff otherwise. Patient is frequently intents and presents as angry and somewhat menacing when he starts talking. -patient remains manic, not sleeping, with pressured speech and paranoid delusional thoughts; patient lacks all insight -03/13patient pulled the mirror off the wall in his bathroom and later ripped the soap dispenser off the wall in his bathroom.? Both times he said it was a miracle that they just fell off. Continues to have present with manic symptoms, pressured speech, paranoid delusions, disorganized thinking, no insight demanding to be discharged today.? Patient can become intense, glaring and making vague threats sometimes litigious threats but other times ones that sound physical, though he later recants -03/14 patient angry, with menacing stare, posturing, threatening biblical destruction, insulting staff and threatening staff...? Patient destroyed bathroom toilet paper dispenser by breaking off the wall.? Later he tried to kick the exit door to the unit open, could not be verbally redirected and security needed to be called, patient medically restrained 03/17 patient has remained taking Depakote and has become more calm and more logical. He still has paranoid delusions and lacks insight however his delusional thinking is less intense and he now makes comments that show he he is engaged in some reality testing, such as qualifying his past rambling about sikh stuff saying those were just thoughts (when before, there were floridly delusional and fixed beliefs). Patient does not think he has a mental illness or bipolar disorder; he does not think he needs medication and while he sometimes says he would consider taking it as an outpatient, he also says he does not plan to. Patient does realize that his past behaviors were off, however he has little insight into their extent and how they scared people prompting them to call the police further safety. It is tag writer's opinion that patient has improved some due to continually taking Depakote. However he remains without any insight and there is little chance he will continue taking this medication if he were to be discharged, resulting in a rapid decompensation back to behaviors and delusional thinking that got him admitted 3 times this past month. 03/18 - patient remains angry at tag writer, saying odd things with intense glare; calling tag writer various insulting names and that tag writer lies about him.? Patient clearly is a potential danger to others as he misinterprets very benign interactions as being threatening such as patient said that tag writer raised up to him and that he almost hit this tag writer.? He explained that when tag writer shrugged his shoulders, he interpreted this as a physical threat and almost got physical in response. -court held today and patient ordered for involuntary commitment and substituted judgment with medication -patient does not want take Depakote and asked to be on Haldol to which tag writer agreed -while tag writer would preferably start patient on on lithium, patient refuses and tag writer's only recourse would then be to have patient be given an IM injection of antipsychotic; at this point tag writer is willing to acquiesce and start a trial of Haldol 03/20 slept last night with Haldol 10 mg at bedtime; remains manic and without any insight; patient ripped off the paper towel dispenser in his bathroom which now has to be locked for his safety. 03/24 - more calm and sleeping since starting lithium; wants to reduce haldol; still lacks insight and with delusional thinking, but less intense; has some very minimal insight seen with small admission that some of his behaviors and speech have been strange. 03/27-still limited insight; intermittently irritable; denies he has mental illness and says he will stop taking Mitchell or any meds on discharge. Manic behaviors are mostly resolved (sleeping; pacing halls, but not really agitated; speech is not pressured) however he remains w/out insight and with grandiose, delusional thinking. -increasing lithium dose; will get levels and associated labs; hoping for monotherapy but may need to add trial of Risperdal. PLAN: Court ordered involuntary commitment and substituted judgment with medication Q 15 minutes checks for safety:? INCREASE TO Mitchell ER 1200mg considering adding Risperdal dc Haldol PATIENT IS ON [place] ORDER Continue Clonazepam 0.5mg BID for anxiety Continue Flomax for pt's complaint of difficult urination says Depakote makes him sick Med list on [place]: Depakote Mitchell Haldol Ziprasidone Risperdal Paliperidone Abilify labs wNL Patient asks for melatonin 6 mg and Benadryl 50 mg at bedtime which has been ordered n Assessment and Plan: Medical consultation sought for routine medical H&P. Patient has no active nor any major chronic medical issues. Patient has been counseled on age appropriate health maintenance as an outpatient. Continue care per primary team. Please re-consult if any issues arise. I spent minutes with the patient and/or on the patient floor today, greater than?50% of which was spent counseling/coordinating care. Reason for contiued inpatient stay Substantial Risk for: rapid decompensation
[2021-03-27 11:06] VITALS: BMI 33.0
[2021-03-27 18:00] VITALS: BP 140/82; PULSE 90; RESP 16; TEMP 36.3; O2SAT 99
[2021-03-27] MEDS: Lithium Carbonate ER 300 MG TABLET.ER 1200 MG PO (20:05)
[2021-03-27] MEDS: Melatonin 3 MG TABLET 9 MG PO (20:05)
[2021-03-27] MEDS: diphenhydrAMINE HCL 25 MG TABLET 50 MG PO (20:13)
[2021-03-28] MEDS: diphenhydrAMINE HCL 25 MG TABLET 50 MG PO (03:49)
[2021-03-28 06:00] VITALS: BP 164/90; PULSE 90; RESP 16; TEMP 36.6; O2SAT 98
[2021-03-28] MEDS: Omeprazole 20 MG CAPSULE.DR PO (08:38)
[2021-03-28] MEDS: Tamsulosin HCL 0.4 MG CAPSULE PO (08:38)
[2021-03-28] MEDS: Acetaminophen 325 MG TABLET 650 MG PO ×2 (08:40→17:28)
[2021-03-28 09:37] LABS: Lithium 0.54 mmol/L (0.60-1.20)
[2021-03-28 09:44] LABS: Blood Urea Nitrogen 11 mg/dL (9-16); Creatinine Clr Calc Pharmacy 130.4; Estimated Glomerular Filt Rate > 60
[2021-03-28 10:06] LABS: TSH reflex Free T4 1.33 uIU/mL (0.32-4.0)
--- NOTE | 2021-03-28 10:16 | HO.PSYCHPN ---
Subjective Subjective Date of Service: 03/28/21 Reason For Visit: Unspecified Schizophrenia Interim History: met with pt and SW Ginger pt refused to sit while talking; he had intense, angry glare; volume increased; body tensed pt irritable with teletypewriter installer; asserts he does not have a mental illness; he says this 3 times for spacial Repetition which teletypewriter installer asks for him to explain; he says you say it 3 times...the number 3, get it? my number is 3 so i say it 3 times...your number is [phone], get it? He says teletypewriter installer is a zero and refers to binary coding that +1 means yes, -1 means no and 0 means no answer, which is what you are 0...cause you've been dicking around with medications and telling me straight. Salesman/Owner tried to review the numerous times teletypewriter installer has tried to explain his medications, risks/side-effect and how patient either does not remember or was unable/unwilling to engage in such a discussion, but pt interrupted teletypewriter installer to repeat that this was not true, teletypewriter installer lied, teletypewriter installer blowing smoke... pt continues to assert he's not mentally ill and explains away most past behaviors through his misinterpretions, disorganized logic or impaired memory of past events. He says he will not keep taking meds when he leaves; he could not accept writers and SW explanations of why he remains manic and need for treatment. Mental Status Exam Mental Status Exam Narrative: Pt is alert and oriented to person place and time but not situation.? Behavior today is very irritable, glaring; however, he is overall more calm on the unit; marginally cooperative (though on unit generally cooperative with staff); patient is appropriately dressed with adequate hygiene; mood is described as angry ;? affect intense, glaring; eye contact intense; speech process is mildly pressured, louder; overall he is able to be interrupted; less often tangential or disorganized, though still is at times; Thought content remains on grandiose themes and being wrongfully admitted since he does not have a mental illness; denies any SI/HI. Denies AVH; ?Patients insight and judgment impaired. Diagnostics Vital Signs (24Hr): Vital Signs - 24 hr 03/27/21 18:00 03/28/21 06:00 Temperature 97.3 F 97.8 F Pulse Rate 90 90 Respiratory Rate 16 16 Blood Pressure 140/82 H 164/90 H Pulse Oximetry 99 98 Body Mass Index 33.0 Labs Results: 03/28/21 08:27 Labs: Laboratory Results - last 48 hr 03/28/21 03/28/21 08:27 08:27 BUN 11 Creatinine 0.77 Estim Creat Clear Calc 130.4 Estimated GFR > 60 TSH 1.33 [place] 0.54 L Medications Medications Current Medications Acetaminophen (Acetaminophen 325 Mg Tablet) 650 mg PO Q6H PRN PRN Reason: Headache/Pain Mild Scale (1-3) Last Admin: 03/28/21 08:40 Dose: 650 mg Documented by: Al Hydroxide/Mg Hydroxide (Magnesium Hydrox/Alum Hydrox 30 Ml Oral.Susp) 30 ml PO Q6H PRN PRN Reason: Heartburn/Nausea Last Admin: 03/25/21 01:23 Dose: 30 ml Documented by: Benztropine Mesylate (Benztropine Mesylate 1 Mg Tablet) 1 mg PO BID PRN PRN Reason: Extrapyramidal Effects Clonazepam (Clonazepam 0.5 Mg Tablet) 0.25 mg PO QID PRN PRN Reason: Anxiety Last Admin: 03/26/21 15:05 Dose: 0.25 mg Documented by: Diphenhydramine HCl (Diphenhydramine Hcl 25 Mg Tablet) 50 mg PO Q4H PRN PRN Reason: agitation Last Admin: 03/27/21 20:13 Dose: 50 mg Documented by: Diphenhydramine HCl (Diphenhydramine Hcl 25 Mg Tablet) 50 mg PO BEDTIME MRX1 PRN PRN Reason: Insomnia Last Admin: 03/28/21 03:49 Dose: 50 mg Documented by: Haloperidol (Haloperidol 5 Mg Tablet) 5 mg PO Q4H PRN PRN Reason: agitation Last Admin: 03/13/21 03:03 Dose: 5 mg Documented by: [place] Carbonate ([place] Carbonate Er 300 Mg Tablet.Er) 1,200 mg PO BEDTIME [facility] Last Admin: 03/27/21 20:05 Dose: 1,200 mg Documented by: Magnesium Hydroxide (Milk Of Magnesia 30 Ml Oral.Susp) 30 ml PO DAILY PRN PRN Reason: Constipation Last Admin: 03/18/21 02:54 Dose: 30 ml Documented by: Melatonin (Melatonin 3 Mg Tablet) 9 mg PO BEDTIME MRX1 [facility] Last Admin: 03/27/21 23:39 Dose: Not Given Documented by: Omeprazole (Omeprazole 20 Mg Capsule.) 20 mg PO DAILY@0630 [facility] Last Admin: 03/28/21 08:38 Dose: 20 mg Documented by: Ondansetron HCl (Ondansetron Odt 4 Mg Tab.Rapdis) 4 mg TRANSLINGU BEDTIME PRN PRN Reason: GIVE WITH LITHIUM Tamsulosin HCl (Tamsulosin Hcl 0.4 Mg Capsule) 0.4 mg PO DAILY [facility] Last Admin: 03/28/21 08:38 Dose: 0.4 mg Documented by: Allergies Allergies Allergy/AdvReac Type Severity Reaction Status Date / Time No Known Allergies Allergy Verified 03/06/21 20:38 Assessment & Plan Assessment & Plan (1) Routine medical exam: Status: Acute Code(s): Z00.00 - Encounter for general adult medical examination without abnormal findings Assessment and Plan: IMPRESSION: It is a he 45-year-old male with diagnosis of bipolar disorder, recently discharged from [facility] (following 20 days on a another inpatient unit in [place], possibly forensic) presents with? continued manic, paranoid, disorganized speech and behavior.? Patient presents as manic and with pressured speech, disorganized, paranoid thinking and with some grandiosity. Patient has no insight and does not want medications.? He is insisting on being discharged and will Renetta the hospital staff otherwise. Patient is frequently intents and presents as angry and somewhat menacing when he starts talking. -patient remains manic, not sleeping, with pressured speech and paranoid delusional thoughts; patient lacks all insight -03/13patient pulled the mirror off the wall in his bathroom and later ripped the soap dispenser off the wall in his bathroom.? Both times he said it was a miracle that they just fell off. Continues to have present with manic symptoms, pressured speech, paranoid delusions, disorganized thinking, no insight demanding to be discharged today.? Patient can become intense, glaring and making vague threats sometimes litigious threats but other times ones that sound physical, though he later recants -03/14 patient angry, with menacing stare, posturing, threatening biblical destruction, insulting staff and threatening staff...? Patient destroyed bathroom toilet paper dispenser by breaking off the wall.? Later he tried to kick the exit door to the unit open, could not be verbally redirected and security needed to be called, patient medically restrained 03/17 patient has remained taking Depakote and has become more calm and more logical. He still has paranoid delusions and lacks insight however his delusional thinking is less intense and he now makes comments that show he he is engaged in some reality testing, such as qualifying his past rambling about temple stuff saying those were just thoughts (when before, there were floridly delusional and fixed beliefs). Patient does not think he has a mental illness or bipolar disorder; he does not think he needs medication and while he sometimes says he would consider taking it as an outpatient, he also says he does not plan to. Patient does realize that his past behaviors were off, however he has little insight into their extent and how they scared people prompting them to call the police further safety. It is teletypewriter installer's opinion that patient has improved some due to continually taking Depakote. However he remains without any insight and there is little chance he will continue taking this medication if he were to be discharged, resulting in a rapid decompensation back to behaviors and delusional thinking that got him admitted 3 times this past month. 03/18 - patient remains angry at teletypewriter installer, saying odd things with intense glare; calling teletypewriter installer various insulting names and that teletypewriter installer lies about him.? Patient clearly is a potential danger to others as he misinterprets very benign interactions as being threatening such as patient said that teletypewriter installer raised up to him and that he almost hit this teletypewriter installer.? He explained that when teletypewriter installer shrugged his shoulders, he interpreted this as a physical threat and almost got physical in response. -court held today and patient ordered for involuntary commitment and substituted judgment with medication -patient does not want take Depakote and asked to be on Haldol to which teletypewriter installer agreed -while teletypewriter installer would preferably start patient on on lithium, patient refuses and teletypewriter installer's only recourse would then be to have patient be given an IM injection of antipsychotic; at this point teletypewriter installer is willing to acquiesce and start a trial of Haldol 03/20 slept last night with Haldol 10 mg at bedtime; remains manic and without any insight; patient ripped off the paper towel dispenser in his bathroom which now has to be locked for his safety. 03/24 - more calm and sleeping since starting lithium; wants to reduce haldol; still lacks insight and with delusional thinking, but less intense; has some very minimal insight seen with small admission that some of his behaviors and speech have been strange. 03/27-still limited insight; intermittently irritable; denies he has mental illness and says he will stop taking [place] or any meds on discharge. Manic behaviors are mostly resolved (sleeping; pacing halls, but not really agitated; speech is not pressured) however he remains w/out insight and with grandiose, delusional thinking. -increasing lithium dose; will get levels and associated labs; hoping for monotherapy but may need to add trial of Risperdal. PLAN: Court ordered involuntary commitment and substituted judgment with medication Q 15 minutes checks for safety:? INCREASE TO [place] ER 1200mg CONSider Risperdal dc Haldol PATIENT IS ON [place]ONG ORDER Continue Clonazepam 0.5mg BID for anxiety Continue Flomax for pt's complaint of difficult urination says Depakote makes him sick Med list on Duong: Depakote [place] Haldol Ziprasidone Risperdal Paliperidone Abilify labs wNL Patient asks for melatonin 6 mg and Benadryl 50 mg at bedtime which has been ordered n Assessment and Plan: Medical consultation sought for routine medical H&P. Patient has no active nor any major chronic medical issues. Patient has been counseled on age appropriate health maintenance as an outpatient. Continue care per primary team. Please re-consult if any issues arise. I spent minutes with the patient and/or on the patient floor today, greater than?50% of which was spent counseling/coordinating care. Reason for contiued inpatient stay Substantial Risk for: rapid decompensation and med/psych decompensation
[2021-03-28 18:00] VITALS: BP 128/84; PULSE 72; RESP 16; TEMP 36.4; O2SAT 96
[2021-03-28] MEDS: Lithium Carbonate ER 300 MG TABLET.ER 1200 MG PO (20:12)
[2021-03-28] MEDS: Melatonin 3 MG TABLET 9 MG PO (21:34)
[2021-03-29] MEDS: Acetaminophen 325 MG TABLET 650 MG PO (08:32)
[2021-03-29] MEDS: Omeprazole 20 MG CAPSULE.DR PO (08:32)
[2021-03-29] MEDS: Tamsulosin HCL 0.4 MG CAPSULE PO (08:32)
--- NOTE | 2021-03-29 09:29 | P.PNPSI_ITS ---
Subjective Subjective Date of Service: 03/29/21 Reason For Visit: Unspecified Schizophrenia Subjective Notes: Conditional Voluntary Medical Problems Affecting Mental Status: No Interim History: Patient was seen in rounds today and discussed. Records and treatment plan reviewed. Labs were reviewed. He continues. He denies any side effects. He is eating and sleeping adequately. No changes were made today Medication Compliance: Yes Side effects from medications: No Attending Groups: Yes Review of Systems Acute medical concerns: No Review of Systems Review of Systems Yes all other systems are reviewed and are negative Diagnostics Vital Signs (24Hr): Vital Signs - 24 hr 03/28/21 18:00 Temperature 97.6 F Pulse Rate 72 Respiratory Rate 16 Blood Pressure 128/84 Pulse Oximetry 96 Body Mass Index 33.0 Labs Results: 03/28/21 08:27 Labs: Laboratory Results - last 48 hr 03/28/21 03/28/21 08:27 08:27 BUN 11 Creatinine 0.77 Estim Creat Clear Calc 130.4 Estimated GFR > 60 TSH 1.33 [place] 0.54 L Medications Medications Current Medications Acetaminophen (Acetaminophen 325 Mg Tablet) 650 mg PO Q6H PRN PRN Reason: Headache/Pain Mild Scale (1-3) Last Admin: 03/29/21 08:32 Dose: 650 mg Documented by: Al Hydroxide/Mg Hydroxide (Magnesium Hydrox/Alum Hydrox 30 Ml Oral.Susp) 30 ml PO Q6H PRN PRN Reason: Heartburn/Nausea Last Admin: 03/25/21 01:23 Dose: 30 ml Documented by: Benztropine Mesylate (Benztropine Mesylate 1 Mg Tablet) 1 mg PO BID PRN PRN Reason: Extrapyramidal Effects Clonazepam (Clonazepam 0.5 Mg Tablet) 0.25 mg PO QID PRN PRN Reason: Anxiety Last Admin: 03/26/21 15:05 Dose: 0.25 mg Documented by: Diphenhydramine HCl (Diphenhydramine Hcl 25 Mg Tablet) 50 mg PO Q4H PRN PRN Reason: agitation Last Admin: 03/27/21 20:13 Dose: 50 mg Documented by: Diphenhydramine HCl (Diphenhydramine Hcl 25 Mg Tablet) 50 mg PO BEDTIME MRX1 PRN PRN Reason: Insomnia Last Admin: 03/28/21 03:49 Dose: 50 mg Documented by: Haloperidol (Haloperidol 5 Mg Tablet) 5 mg PO Q4H PRN PRN Reason: agitation Last Admin: 03/13/21 03:03 Dose: 5 mg Documented by: [place] Carbonate ([place] Carbonate Er 300 Mg Tablet.Er) 1,200 mg PO BEDTIME [facility] Last Admin: 03/28/21 20:12 Dose: 1,200 mg Documented by: Magnesium Hydroxide (Milk Of Magnesia 30 Ml Oral.Susp) 30 ml PO DAILY PRN PRN Reason: Constipation Last Admin: 03/18/21 02:54 Dose: 30 ml Documented by: Melatonin (Melatonin 3 Mg Tablet) 9 mg PO BEDTIME [facility] Last Admin: 03/28/21 21:34 Dose: 9 mg Documented by: Omeprazole (Omeprazole 20 Mg Capsule.Dr) 20 mg PO DAILY@0630 [facility] Last Admin: 03/29/21 08:32 Dose: 20 mg Documented by: Ondansetron HCl (Ondansetron Odt 4 Mg Tab.Rapdis) 4 mg TRANSLINGU BEDTIME PRN PRN Reason: GIVE WITH LITHIUM Tamsulosin HCl (Tamsulosin Hcl 0.4 Mg Capsule) 0.4 mg PO DAILY [facility] Last Admin: 03/29/21 08:32 Dose: 0.4 mg Documented by: Allergies Allergies Allergy/AdvReac Type Severity Reaction Status Date / Time No Known Allergies Allergy Verified 03/06/21 20:38 Assessment & Plan Assessment & Plan (1) Routine medical exam: Status: Acute Code(s): Z00.00 - Encounter for general adult medical examination without abnormal findings Assessment and Plan: IMPRESSION: It is a he 45-year-old male with diagnosis of bipolar disorder, recently discharged from [facility] (following 20 days on a another inpatient unit in [place], possibly forensic) presents with? continued manic, paranoid, di sorganized speech and behavior.? Patient presents as manic and with pressured speech, disorganized, paranoid thinking and with some grandiosity. Patient has no insight and does not want medications.? He is insisting on being discharged and will Renetta the hospital staff otherwise. Patient is frequently intents and presents as angry and somewhat menacing when he starts talking. -patient remains manic, not sleeping, with pressured speech and paranoid delusional thoughts; patient lacks all insight -03/13patient pulled the mirror off the wall in his bathroom and later ripped the soap dispenser off the wall in his bathroom.? Both times he said it was a miracle that they just fell off. Continues to have present with manic symptoms, pressured speech, paranoid delusions, disorganized thinking, no insight demanding to be discharged today.? Patient can become intense, glaring and making vague threats sometimes litigious threats but other times ones that sound physical, though he later recants -03/14 patient angry, with menacing stare, posturing, threatening biblical destruction, insulting staff and threatening staff...? Patient destroyed bathroom toilet paper dispenser by breaking off the wall.? Later he tried to kick the exit door to the unit open, could not be verbally redirected and securi ty needed to be called, patient medically restrained 03/17 patient has remained taking Depakote and has become more calm and more logical. He still has paranoid delusions and lacks insight however his delusional thinking is less intense and he now makes comments that show he he is engaged in some reality testing, such as qualifying his past rambling about restorationist stuff saying those were just thoughts (when before, there were floridly delusional and fixed beliefs). Patient does not think he has a mental illness or bipolar disorder; he does not think he needs medication and while he sometimes says he would consider taking it as an outpatient, he also says he does not plan to. Patient does realize that his past behaviors were off, however he has little insight into their extent and how they scared people prompting them to call the police further safety. It is screen writer's opinion that patient has improved some due to continually taking Depakote. However he remains without any insight and there is little chance he will continue taking this medication if he were to be discharged, resulting in a rapid decompensation back to behaviors and delusional thinking that got him admitted 3 times this past month. 03/18 - patient remains angry at screen writer, saying odd things with intense glare; ca lling screen writer various insulting names and that screen writer lies about him.? Patient clearly is a potential danger to others as he misinterprets very benign interactions as being threatening such as patient said that screen writer raised up to him and that he almost hit this screen writer.? He explained that when screen writer shrugged his shoulders, he interpreted this as a physical threat and almost got physical in response. -court held today and patient ordered for involuntary commitment and substituted judgment with medication -patient does not want take Depakote and asked to be on Haldol to which screen writer agreed -while screen writer would preferably start patient on on lithium, patient refuses and screen writer's only recourse would then be to have patient be given an IM injection of antipsychotic; at this point screen writer is willing to acquiesce and start a trial of Haldol 03/20 slept last night with Haldol 10 mg at bedtime; remains manic and without any insight; patient ripped off the paper towel dispenser in his bathroom which now has to be locked for his safety. 03/24 - more calm and sleeping since starting lithium; wants to reduce haldol; still lacks insight and with delusional thinking, but less intense; has some very minimal insight seen with small admission that some of his behaviors and speech have been strange. 03/27-still limited insight; intermittently irritable; denies he has mental illness and says he will stop taking [place] or any meds on discharge. Manic behaviors are mostly resolved (sleeping; pacing halls, but not really agitated; speech is not pressured) however he remains w/out insight and with grandiose, delusional thinking. -increasing lithium dose; will get levels and associated labs; hoping for monotherapy but may need to add trial of Risperdal. PLAN: Court ordered involuntary commitment and substituted judgment with medication Q 15 minutes checks for safety:? INCREASE TO [place] ER 1200mg CONSider Risperdal dc Haldol PATIENT IS ON DUONG ORDER Continue Clonazepam 0.5mg BID for anxiety Continue Flomax for pt's complaint of difficult urination says Depakote makes him sick Med list on [place]ong: Depakote [place] Haldol Ziprasidone Risperdal Paliperidone Abilify labs wNL Patient asks for melatonin 6 mg and Benadryl 50 mg at bedtime which has been or dered n Assessment and Plan: Medical consultation sought for routine medical H&P. Patient has no active nor any major chronic medical issues. Patient has been counseled on age appropriate health maintenance as an outpatient. Continue care per primary team. Please re-consult if any issues arise. I spent minutes with the patient and/or on the patient floor today, greater than?50% of which was spent counseling/coordinating care. Reason for contiued inpatient stay Substantial Risk for: other
[2021-03-29 16:36] VITALS: BP 125/82; PULSE 95; TEMP 36.3
[2021-03-29] MEDS: Lithium Carbonate ER 300 MG TABLET.ER 1200 MG PO (20:38)
[2021-03-29] MEDS: diphenhydrAMINE HCL 25 MG TABLET 50 MG PO (20:38)
[2021-03-29] MEDS: Melatonin 3 MG TABLET 9 MG PO (20:38)
[2021-03-30 06:00] VITALS: BP 142/83; PULSE 82; RESP 16; TEMP 36.7; O2SAT 98
[2021-03-30] MEDS: Acetaminophen 325 MG TABLET 650 MG PO (08:19)
[2021-03-30] MEDS: Tamsulosin HCL 0.4 MG CAPSULE PO (08:21)
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
[2021-03-30 18:00] VITALS: BP 140/83; PULSE 93; TEMP 36.3; O2SAT 97
[2021-03-30] MEDS: Melatonin 3 MG TABLET 9 MG PO (20:42)
[2021-03-30] MEDS: diphenhydrAMINE HCL 25 MG TABLET 50 MG PO (20:42)
[2021-03-30] MEDS: Lithium Carbonate ER 300 MG TABLET.ER 1200 MG PO (20:42)
[2021-03-30] MEDS: Magnesium Hydrox/Alum Hydrox 30 ML ORAL.SUSP PO (22:17)
[2021-03-31 06:31] VITALS: BP 124/78; PULSE 79; RESP 18; TEMP 35.8; O2SAT 96
[2021-03-31] MEDS: Omeprazole 20 MG CAPSULE.DR PO (06:32)
[2021-03-31] MEDS: Tamsulosin HCL 0.4 MG CAPSULE PO (08:13)
[2021-03-31] MEDS: Acetaminophen 325 MG TABLET 650 MG PO (09:16)
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
[2021-03-31] MEDS: Melatonin 3 MG TABLET 9 MG PO (19:38)
[2021-03-31] MEDS: Lithium Carbonate ER 300 MG TABLET.ER 1200 MG PO (19:38)
[2021-03-31] MEDS: diphenhydrAMINE HCL 25 MG TABLET 50 MG PO (19:46)
[2021-03-31] MEDS: clonazePAM 0.5 MG TABLET PO (20:19)
[2021-04-01 05:13] VITALS: BP 137/95; PULSE 84; RESP 16; TEMP 36.3; O2SAT 99
[2021-04-01] MEDS: Omeprazole 20 MG CAPSULE.DR PO (06:10)
[2021-04-01] MEDS: Tamsulosin HCL 0.4 MG CAPSULE PO (08:01)
[2021-04-01 09:05] LABS: Lithium 0.61 mmol/L (0.60-1.20)
[2021-04-01 09:15] LABS: Blood Urea Nitrogen 11 mg/dL (9-16); Creatinine Clr Calc Pharmacy 133.9; Estimated Glomerular Filt Rate > 60
[2021-04-01 09:38] LABS: TSH reflex Free T4 2.12 uIU/mL (0.32-4.0)
[2021-04-01] MEDS: Acetaminophen 325 MG TABLET 650 MG PO (13:14)
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
[2021-04-01 18:00] VITALS: BP 113/74; PULSE 82; RESP 16; TEMP 36.5; O2SAT 99
[2021-04-01] MEDS: clonazePAM 0.5 MG TABLET PO (18:07)
[2021-04-01] MEDS: Lithium Carbonate ER 300 MG TABLET.ER 1200 MG PO (21:13)
[2021-04-01] MEDS: Melatonin 3 MG TABLET 9 MG PO (21:14)
[2021-04-01] MEDS: diphenhydrAMINE HCL 25 MG TABLET 50 MG PO (21:14)
[2021-04-02 05:48] VITALS: BP 130/80; PULSE 81; RESP 16; TEMP 36.3; O2SAT 99
[2021-04-02] MEDS: Omeprazole 20 MG CAPSULE.DR PO (08:50)
[2021-04-02] MEDS: Tamsulosin HCL 0.4 MG CAPSULE PO (08:50)
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
[2021-04-02] MEDS: Acetaminophen 325 MG TABLET 650 MG PO (11:26)
== END 2021-04-02 14:40 | disposition home or self-care (01) | DRG 753 ==
PROVIDERS: Admitting Provider Psychiatry & Neurology Psychiatry; PCP Internal Medicine; Visit Provider Psychiatry & Neurology Psychiatry
DX: F31.9 Bipolar disorder, unspecified (principal); K21.9 Gastro-esophageal reflux disease without esophagitis; Z87.891 Personal history of nicotine dependence
CPT/HCPCS: 36415; 80051; 80061; 80076; 80164; 80178; 81001; 82140; 82565; 83036; 84443; 84520; 93005; J1200; J2060; Q0163